=== PATIENT | female | born 1935 | race Caucasian/White ===

== ENCOUNTER 2016-06-27 13:37 | Emergency (ER) | payer OTHER ==
[~2016-06-27] VITALS: Ht 170.2 cm; Wt 61.7 kg
[~2016-06-27 13:37] MED LIST: ATIVAN1 M1 PO; ATIVAN1 MG PO; BLEPHAMIDE OP; DELTASONE10 MG PO; LOPRESSOR25 MG PO; MECLIZINE25 M2 PO; NAPROXEN500 M1 PO; PROVENTIL2.5 MG/3 M INH; SINGULAIR10 MG PO; THEOPHYLLINE300 MG PO; VENTOLIN H0.09 MG/Ac IH; VERAPAMIL HCL80 MG PO; VESICARE5 MG PO; XOPENEX0.63 MG/3 INH
[2016-06-27 13:50] VITALS: BP 164/97
--- NOTE | 2016-06-27 14:07 | NUR ---
APATIENT PRESENTS TO ED DUE TO SOB, WHEEZING AND COUGHING . PT STATES IM TAKING LEVAQUIN AND PREDNISONE AND ALBUTEROL,WITH DIARRHEA; SKIN IS PINK/WARM/DRY; AAOX4 WITH EVEN AND STEADY GAIT; HR EVEN AND REGULAR, PATIENT STATES PAIN OF 05/10 SORETHROAT,AT THIS TIME; PATIENT POSITIONED FOR COMFORT; HOB ELEVATED; BEDRAILS UP X2; BED DOWN. PT WAS IN THE CLINIC TODAY AND WAS ADVISE TO COME TO ER.
--- NOTE | 2016-06-27 14:25 | NUR ---
RELAYED TO DR. MARINA RESULT OF URINE DIPSTICK
--- NOTE | 2016-06-27 14:27 | NUR ---
DR. MARINA AT BEDSIDE,PT AAO, SON IN LAW AT BEDSIDE
[2016-06-27] MEDS ORDERED: methylPREDNISolone SS 125 MG in WATER STERILE 2 ML IV ONE (14:35)
[2016-06-27] MEDS ORDERED: ALBUTEROL SULFATE/IPRATROPIU 3 ML SOL IH ONE (14:35)
--- NOTE | 2016-06-27 15:14 | NUR ---
PT AAO.NO ACUTE DISTRESS NOTED.PT WENT TO XRAY ACCOMPANIED BY [employer].
--- NOTE | 2016-06-27 15:21 | NUR ---
BREATHING TX ON GOING.
--- NOTE | 2016-06-27 16:15 | NUR ---
PT AAO.NO ACUTE DISTRESS NOTED. AMBULATED TO RESTROOM.
--- NOTE | 2016-06-27 16:23 | NUR ---
DAUGHTER AT BEDSIDE.
--- NOTE | 2016-06-27 16:31 | NUR ---
DR. MARINA AT BEDSIDE
--- NOTE | 2016-06-27 16:40 | NUR ---
Patient discharged with v/s stable. Written and verbal after care instructions given and explained. Patient alert, oriented and verbalized understanding of instructions. Ambulatory with steady gait. All questions addressed prior to discharge. ID band removed. Patient advised to follow up with PMD. Rx of AZITHROMYCIN AND PREDNISONE given. Patient educated on indication of medication including possible reaction and side effects. Opportunity to ask questions provided and answered.
[2016-06-27 16:43] VITALS: BP 146/79
== END 2016-06-27 16:18 | disposition home or self-care (01) ==
LOC: MED 13:42
DX: J45.901 Unspecified asthma with (acute) exacerbation (principal); J44.9 Chronic obstructive pulmonary disease, unspecified
CPT/HCPCS: 36415; 71020; 80048; 85025; 93005; 94640; 96374; 99285; J2930; J7620

== ENCOUNTER 2016-07-31 18:19 | Emergency (ER) | payer OTHER ==
[~2016-07-31] VITALS: Ht 170.2 cm; Wt 59.0 kg
[2016-07-31 18:40] VITALS: BP 157/88
[2016-07-31 20:30] VITALS: BP 152/83
--- NOTE | 2016-07-31 21:14 | NUR ---
BIB WHEELCHAIR TO ER BED 2
--- NOTE | 2016-07-31 21:20 | NUR ---
80Y/F PATIENT PRESENTS TO ED WITH C/O SOB . PT STATES HX.COPD, TODAY HAVIG EPISODE OF SOB . DENIES N/V/D; SKIN IS PINK/WARM/DRY; AAOX4 WITH EVEN AND STEADY GAIT; LUNGS CLEAR BL; HR EVEN AND REGULAR; PT DENIES ANY FEVER COUGH AT THIS TIME; PATIENT STATES PAIN OF 5/10 AT THIS TIME; VSS; PATIENT POSITIONED FOR COMFORT; HOB ELEVATED; BEDRAILS UP X2; BED DOWN. ER MD MADE AWARE OF PT STATUS.
--- NOTE | 2016-07-31 21:25 | NUR ---
Patient being evaluated by DR. PATEL at bedside.
[2016-07-31] MEDS ORDERED: KETOROLAC 60 MG/2 ML VIAL IM ONE (21:55)
[2016-07-31] MEDS ORDERED: ALBUTEROL SULFATE/IPRATROPIU 3 ML SOL IH ONE (21:55)
--- NOTE | 2016-07-31 22:35 | NUR ---
Patient discharged with v/s stable. Written and verbal after care instructions given and explained. Patient alert, oriented and verbalized understanding of instructions. Ambulatory with steady gait. All questions addressed prior to discharge. ID band removed. Patient advised to follow up with PMD. Rx of ATROVENT 0.02% SOLUTION given. Patient educated on indication of medication including possible reaction and side effects. Opportunity to ask questions provided and answered.
== END 2016-07-31 22:35 | disposition home or self-care (01) ==
LOC: MED 18:19
DX: J44.1 Chronic obstructive pulmonary disease with (acute) exacerbation (principal); J45.998 Other asthma
CPT/HCPCS: 36415; 71010; 80053; 81001; 82550; 82553; 83605; 83874; 83880; 84484; 85025; 85610; 85730; 87040; 87086; 93005; 94640; 96372; 99285; J1885; J7620

== ENCOUNTER 2016-09-21 12:35 | Emergency (ER) | payer OTHER ==
[~2016-09-21] VITALS: Ht 154.9 cm; Wt 60.3 kg
[2016-09-21 12:49] VITALS: BP 133/63
--- NOTE | 2016-09-21 14:36 | NUR ---
Patient ambulated to bed 6. RN evaluating patient at bedside.
--- NOTE | 2016-09-21 14:38 | NUR ---
PT CAME TO ER W/ C/O LEFT EAR RINGING 3YRS BUT RINGING WORSE AND NOW WITH AIR SOUND 1 WK ADDS NECK / HEADACHE/ THROAT PAIN;PAIN SCALE OF 6/10;DENIES CP/SOB/COUGH/N/V AT THIS TIME;HX ---COPD, ;RX----ANACIN, ALBUTEROL, SYMBICORT, MECLIZINE, IBUPROFEN;NEEDS ATTENDED;SAFETY MEASURES DONE;NEEDS ATTENDED;POSITIONED FOR COMFORT.
--- NOTE | 2016-09-21 14:46 | NUR ---
Dr. Prince evaluating patient at bedside.
[2016-09-21] MEDS ORDERED: DEXAMETHASONE 4 MG/ML VIAL PO ONE (14:50)
[2016-09-21] MEDS ORDERED: METOCLOPRAMIDE 10 MG TAB PO ONE (14:50)
--- NOTE | 2016-09-21 15:45 | NUR ---
PT RESTING ON BED;NO ACUTE DISTRESS NOTED;WILL CONTINUE TO MONITOR PT.
--- NOTE | 2016-09-21 16:33 | NUR ---
PT ASKED FOR A BEDPAN;WANTS TO URINATE;
--- NOTE | 2016-09-21 17:13 | NUR ---
DR HAYWOOD AT BEDSIDE.
[2016-09-21 17:34] VITALS: BP 118/77
== END 2016-09-21 17:32 | disposition home or self-care (01) ==
LOC: MED 12:35
DX: J02.9 Acute pharyngitis, unspecified (principal); H93.12 Tinnitus, left ear; J44.9 Chronic obstructive pulmonary disease, unspecified; Z79.899 Other long term (current) drug therapy
CPT/HCPCS: 36415; 70450; 80053; 81001; 85025; 85610; 85730; 87081; 93005; 99285; J1100; J8597; Q0163

== ENCOUNTER 2017-04-08 16:46 | Inpatient (IN) | payer OTHER ==
[~2017-04-08] VITALS: Ht 160 cm; Wt 59.9 kg
[~2017-04-08 16:46] MED LIST changes: +ALBU0.0912 IH; -ATIVAN1 M1 PO; -ATIVAN1 MG PO; +BLEOS OP; -BLEPHAMIDE OP; -DELTASONE10 MG PO; -LOPRESSOR25 MG PO; +LORA-476 PO; +MECL-272 PO; -MECLIZINE25 M2 PO; -NAPROXEN500 M1 PO; +PRON INH; -PROVENTIL2.5 MG/3 M INH; -SINGULAIR10 MG PO; +SOLI5TAB PO; -THEOPHYLLINE300 MG PO; -VENTOLIN H0.09 MG/Ac IH; -VERAPAMIL HCL80 MG PO; -VESICARE5 MG PO; -XOPENEX0.63 MG/3 INH
[2017-04-08 17:19] VITALS: BP 132/77
--- NOTE | 2017-04-08 17:29 | NUR ---
PT PRESENTS TO ER W/C/O DIZZINESS X2 DAYS. HX RECENT LEFT EAR INFECTION, COPD,EMPHYSEMA, DEPRESSION, ANXIETY. DENIES N/V/D; SKIN IS PINK/WARM/DRY; AAOX4 WITH EVEN AND STEADY GAIT; LUNGS CLEAR BL; HR EVEN AND REGULAR; PT DENIES ANY FEVER, CP, SOB, OR COUGH AT THIS TIME; PATIENT STATES PAIN OF 0/10 AT THIS TIME; VSS; PATIENT POSITIONED FOR COMFORT; HOB ELEVATED; BEDRAILS UP X2; BED DOWN. ER MD MADE AWARE OF PT STATUS.
--- NOTE | 2017-04-08 17:32 | NUR ---
DR ROLAND EVALUATING AAO PT AT BEDSIDE
[2017-04-08] MEDS ORDERED: MECLIZINE 25 MG TAB PO ONE (17:40)
[2017-04-08] MEDS ORDERED: ALBUTEROL SULFATE/IPRATROPIU 3 ML SOL IH ONE (17:40)
[2017-04-08] MEDS ORDERED: ONDANSETRON 4 MG/2 ML VIAL IVP ONE (17:40)
[2017-04-08] MEDS ORDERED: LORazepam 2 MG/ML VIAL IVP ONE (17:40)
[2017-04-08] MEDS ORDERED: NACL 0.9% 1,000 ML IV ONE (17:40)
[2017-04-08 17:50] LABS: BASOPHILS # (AUTO) 0.1 K/uL (0.00-0.22); BASOPHILS % (AUTO) 1.3 % (0.0-2.0); EOSINOPHILS % (AUTO) 0.1 % (0.0-4.0); HEMATOCRIT 39.9 % (36-48); HEMOGLOBIN 13.4 g/dL (12.0-16.0); LYMPHOCYTES # (AUTO) 0.6 K/uL (2.5-16.5); LYMPHOCYTES % (AUTO) 5.2 % (20.5-51.1); MEAN CORPUSCULAR HEMOGLOBIN 31 pg (27-31); MEAN CORPUSCULAR HGB CONC 34 g/dL (33-37); MEAN CORPUSCULAR VOLUME 93 fL (80-94); MONOCYTES # (AUTO) 0.1 K/uL (0.8-1.0); MONOCYTES % (AUTO) 0.8 % (1.7-9.3); NEUTROPHILS # (AUTO) 10.1 K/uL (1.8-7.7); NEUTROPHILS % (AUTO) 92.6 % (42.2-75.2); PLATELET COUNT (AUTO) 180 K/uL (140-450); RED CELL DISTRIBUTION WIDTH 14.1 % (11.6-13.7); WHITE BLOOD COUNT (AUTO) 10.9 K/uL (4.8-10.8)
--- NOTE | 2017-04-08 18:00 | NUR ---
Respiratory Therapist at bedside for respiratory intervention.
[2017-04-08 18:11] LABS: ALBUMIN 3.8 g/dL (3.4-5.0); ANION GAP 13.6 (8-16); ASPARTATE AMINOTRANSFERASE 18 U/L (15-37); CARBON DIOXIDE 26.5 mmol/L (21-32); CHLORIDE 105 mmol/L (98-107); CREATININE 1.1 mg/dL (0.6-1.3); GLUCOSE 122 mg/dL (74-106); POTASSIUM 4.1 mmol/L (3.5-5.1); SODIUM SERUM 141 mmol/L (136-145); TOTAL BILIRUBIN 0.4 mg/dL (0.0-1.0); UREA NITROGEN, BLOOD 22 mg/dL (7-18)
[2017-04-08 18:49] LABS: APPEARANCE,URINE CLEAR (CLEAR); BILIRUBIN,URINE NEGATIVE (NEGATIVE); BLOOD, URINE TRACE-I (NEGATIVE); LEUKOCYTE ESTERASE ,URINE NEGATIVE (NEGATIVE); NITRITE, URINE NEGATIVE (NEGATIVE); UGLUCOSE NEGATIVE (NEGATIVE)
[2017-04-08 18:51] LABS: COLOR,URINE STRAW (YELLOW)
[2017-04-08] MEDS ORDERED: MONT10TA35 PO (18:53)
[2017-04-08] MEDS ORDERED: ACET-7568 PO (18:53)
[2017-04-08] MEDS ORDERED: SERT50TA PO (18:53)
[2017-04-08] MEDS ORDERED: PRED10TA5 PO (18:53)
[2017-04-08 18:55] LABS: RBC,URINE 0-5 (RARE) /HPF (0-5); WBC,URINE 0-5 (RARE) /HPF (0-5)
[2017-04-08] MEDS ORDERED: ACETAMINOPHEN EXTRA STRENGTH 500 MG TAB PO ONE (18:55)
[2017-04-08] MEDS ORDERED: HYDROcodone/APAP 7.5/325 MG 1 TAB PO PRN (18:55)
[2017-04-08] MEDS ORDERED: ACETAMINOPHEN 325 MG TAB PO PRN (18:55)
[2017-04-08] MEDS ORDERED: ONDANSETRON 4 MG/2 ML VIAL IVP PRN (18:55)
[2017-04-08] MEDS ORDERED: MECLIZINE 25 MG TAB PO PRN ×2 (19:15→19:25)
--- NOTE | 2017-04-08 19:16 | NUR ---
REPORT GIVEN TO TIM MICHEL
--- NOTE | 2017-04-08 19:17 | NUR ---
Pt found resting comfortably in bed. VSS. No distress noted.
--- NOTE | 2017-04-08 19:18 | NUR ---
Pt taken to CT via rshabbir.
[2017-04-08 19:20] LABS: PROTHROMBIN TIME 10.3 secs (10.8-13.4)
[2017-04-08 19:29] LABS: CHOL/HDL RATIO 2.8 (1-4.5); FREE T4 (FREE THYROXINE) 0.78 ng/dL (0.76-1.46); PHOSPHORUS 2.8 mg/dL (2.5-4.9); THYROID STIMULATING HORMONE 0.61 uIU/mL (0.34-3.74)
--- NOTE | 2017-04-08 19:44 | NUR ---
Pt placed in position of comfort, warm blanket provided. Belongings placed in a patient belongings bag and labeled with pt sticker. Lights dimmed in room. VSS. All needs addressed.
--- NOTE | 2017-04-08 19:55 | NUR ---
Dr. Almodovar evaluating patient at bedside.
--- NOTE | 2017-04-08 19:59 | NUR ---
Waiting for on-call nurse to arrive for report to be given. Will continue to monitor patient.
[2017-04-08] MEDS ORDERED: ALBUTEROL SULFATE/IPRATROPIU 3 ML SOL IH PRN (20:30)
--- NOTE | 2017-04-08 20:49 | NUR ---
call manager nurse has not arrived. Unable to give report. Pt stable. Daughter at bedside.
--- NOTE | 2017-04-08 21:17 | NUR ---
Patient will be admitted to care of Dr. Monzon. Admited to Tele. Will go to [id number]. Belongings list completed. Report to Diana DUMONT.
[2017-04-08] MEDS: NACL 0.9% 1,000 ML IV SCH (21:35)
--- NOTE | 2017-04-08 21:35 | NUR ---
ADMITTED PATIENT TO THE TELE UNIT, PATIENT AWAKE ALERT ORIENTED X4, NO S/S OF DISTRESS NOTED, RESPIRATION EVEN AND UNLABORED, DENIES PAIN AT THIS TIME. IV PATENT AND INTACT. TELE MONITOR IS PLACED ON PATIENT. ORIENTED PATIENT TO THE ROOM, DISCUSSED PLAN OF CARE, PATIENT VERBALIZED UNDERSTANDING. CALL LIGHT WITHIN REACH, SAFETY MEASURE ENSURED, WILL CONTINUE TO MONITOR.
[2017-04-08] MEDS: SERTRALINE 50 MG TAB PO SCH (21:42)
[2017-04-08] MEDS: LORazepam 1 MG TAB PO SCH (21:42)
[2017-04-08] MEDS: DOCUSATE SODIUM 100 MG GELCAP PO SCH (21:42)
[2017-04-08 21:50] VITALS: BP 126/82
--- NOTE | 2017-04-08 23:46 | NUR ---
PATIENT WAS SLEEPING, BUT EASY TO AROUSE, RESPIRATION EVEN AND UNLABORED, S/S OF DISTRESS NOTED. CALL LIGHT WITHIN REACH, SAFETY MEASURE ENSURED, WILL CONTINUE TO MONITOR.
[2017-04-09] VITALS (8 sets, daily range): BP systolic 125–138; BP diastolic 65–79
--- NOTE | 2017-04-09 02:03 | NUR ---
NO CHANGE IN CONDITION, PATIENT IS SLEEPING, NO S/S OF DISTRESS NOTED, RESPIRATION EVEN AND UNLABORED, CALL LIGHT WITHIN REACH, SAFETY MEASURE ENSURED, WILL CONTINUE TO MONITOR.
--- NOTE | 2017-04-09 04:04 | NUR ---
PATIENT WAS SLEEPING, BUT EASY TO AROUSE, NO S/S OF DISTRESS NOTED, RESPIRATION EVEN AND UNLABORED, CALL LIGHT WITHIN REACH, SAFETY MEASURE ENSURED, WILL CONTINUE TO MONITOR.
--- NOTE | 2017-04-09 06:29 | NUR ---
PATIENT WAS SLEEPING, BUT EASY TO AROUSE. NO S/S OF DISTRESS NOTED, RESPIRATION EVEN AND UNLABORED, CALL LIGHT WITHIN REACH, SAFETY MEASURE ENSURED, WILL CONTINUE TO MONITOR.
[2017-04-09 06:51] LABS: BASOPHILS # (AUTO) 0.1 K/uL (0.00-0.22); BASOPHILS % (AUTO) 1.4 % (0.0-2.0); EOSINOPHILS % (AUTO) 0.5 % (0.0-4.0); HEMATOCRIT 35.3 % (36-48); LYMPHOCYTES # (AUTO) 1.4 K/uL (2.5-16.5); LYMPHOCYTES % (AUTO) 16.9 % (20.5-51.1); MEAN CORPUSCULAR HEMOGLOBIN 32 pg (27-31); MEAN CORPUSCULAR HGB CONC 34 g/dL (33-37); MEAN CORPUSCULAR VOLUME 93 fL (80-94); MONOCYTES # (AUTO) 0.6 K/uL (0.8-1.0); MONOCYTES % (AUTO) 6.5 % (1.7-9.3); NEUTROPHILS # (AUTO) 6.5 K/uL (1.8-7.7); NEUTROPHILS % (AUTO) 74.7 % (42.2-75.2); PLATELET COUNT (AUTO) 147 K/uL (140-450); RED BLOOD CELL COUNT(AUTO) 3.81 MIL/uL (4.20-5.40); RED CELL DISTRIBUTION WIDTH 14.2 % (11.6-13.7); WHITE BLOOD COUNT (AUTO) 8.6 K/uL (4.8-10.8)
[2017-04-09] MEDS: ALBUTEROL SULFATE/IPRATROPIU 3 ML SOL IH SCH ×3 (06:51→19:00)
[2017-04-09 06:56] LABS: ANION GAP 11.2 (8-16); CARBON DIOXIDE 26.7 mmol/L (21-32); CHLORIDE 111 mmol/L (98-107); CREATININE 0.9 mg/dL (0.6-1.3); GLUCOSE 92 mg/dL (74-106); POTASSIUM 3.9 mmol/L (3.5-5.1); SODIUM SERUM 145 mmol/L (136-145); UREA NITROGEN, BLOOD 17 mg/dL (7-18)
[2017-04-09 07:06] LABS: PHOSPHORUS 3.3 mg/dL (2.5-4.9)
--- NOTE | 2017-04-09 07:10 | NUR ---
ENDORSED PLAN OF CARE TO DAY RN. PATIENT IS IN STABLE CONDITION, NO S/S OF DISTRESS NOTED.
--- NOTE | 2017-04-09 07:22 | NUR ---
RECEIVED PT IN BED. AWAKE. ALERT ORIENTEDX4. NO SOB NOTED. DENIES ANY PAIN OR DISCOMFORT AT THIS TIME. PT AMBULATORY WITH STANDBY ASSIST. SAFETY PRECAUTION IN PLACE. CALL LIGHT WITHIN REACH.
--- NOTE | 2017-04-09 08:42 | NUR ---
PATIENT HAS BEEN SCREENED AND CATEGORIZED LOW NUTRITION RISK. PATIENT WILL BE SEEN WITHIN 7 DAYS OF ADMISSION. 04/15/[address] Addendum: 04/09/17 at [address] PLEASE DISREGARD PREVIOUS NOTE IT WAS ENTERED IN ERROR. PATIENT HAS BEEN SCREENED AND CATEGORIZED MODERATE NUTRITION RISK. PATIENT WILL BE SEEN WITHIN 3-5 DAYS OF ADMISSION. 04/11/17-04/13/[address]
[2017-04-09] MEDS ORDERED: PREDNISOL/SULFACE 0.23%-10% OP SOL. 5 ML BTL OP SCH (09:00)
[2017-04-09] MEDS: ASPIRIN 81 MG TAB.CHEW PO SCH (09:09)
[2017-04-09] MEDS: DOCUSATE SODIUM 100 MG GELCAP PO SCH ×2 (09:09→20:36)
[2017-04-09] MEDS: ATORVASTATIN 20 MG TAB PO SCH (09:10)
[2017-04-09] MEDS: predniSONE 10 MG TAB PO SCH (09:10)
[2017-04-09] MEDS: MONTELUKAST SODIUM 10 MG TAB PO SCH (09:10)
[2017-04-09] MEDS: FLUTICASONE NASAL 50 MCG/ACTUATION 16 GM BTL NS SCH ×2 (12:00→20:35)
--- NOTE | 2017-04-09 12:03 | NUR ---
OVERNIGHT STOCKER CAME TO SUBSTATION WIREMAN PT. PT ON STABLE CONDITION.
--- NOTE | 2017-04-09 13:33 | NUR ---
Clinical review faxed to Brennen VEGA AT [phone]
--- NOTE | 2017-04-09 15:01 | NUR ---
EXPLAINED TO PT THAT MD IS REQUESTING HEALTH RECORDS FROM [facility]. PT VERBALIZED UNDERSTANDING. CALLED [facility] AT [phone]. CONFIRMED THAT THEY HAVE PT'S RECORD. PT SIGNED CONSENT FOR DISCLOSURE OF HEALTH RECORDS FORM FROM [facility] TO [facility] PER MD REQUEST. FAXED REQUEST TO [phone]. AWAITING CONFIRMATION.
--- NOTE | 2017-04-09 16:05 | NUR ---
RECEIVED FAX CONFIRMATION FROM [facility] THAT THEY RECEIVED REQUEST. AWAITING FOR INFORMATION PAPERS.
--- NOTE | 2017-04-09 17:19 | NUR ---
PHYSICAL THERAPY CAME TO SEE PT. PT WAS ABLE TO WALK WITH STANDBY ASSIST ALONG THE HALLWAY. NON SOB NOTED. DENIES ANY PAIN OR DISCOMFORT AT THIS TIME.
[2017-04-09] MEDS: NACL 0.9% 1,000 ML IV SCH (18:11)
--- NOTE | 2017-04-09 18:36 | NUR ---
PT KEPT CLEAN, DRY AND COMFORTABLE, NEEDS ATTENDED. NO SOB NOTED. DENIES ANY PAIN OR DISCOMFORT AT THIS TIME. WILL ENDORSE TO NEXT SHIFT. PT ON STABLE CONDITION, FOR CONTINUITY OF CARE.
--- NOTE | 2017-04-09 19:10 | NUR ---
RECEIVED PT FROM YASIR RN PT OCCITAN SPEAKER AAOX4 AMBULATORY ON BREATHING TX AT THIS TIME DENIES ANY PAIN OR DISCOMFORT iv on left arm infusing well initial assessment done
[2017-04-09] MEDS: LORazepam 1 MG TAB PO SCH (20:36)
[2017-04-09] MEDS: SERTRALINE 50 MG TAB PO SCH (20:37)
--- NOTE | 2017-04-09 21:00 | NUR ---
pt is assisted to the restroom voiding well not distress noted
--- NOTE | 2017-04-09 21:30 | NUR ---
PT REMAIN STABLE DENIES ANY DIZZINESS AT THIS TIME
[2017-04-10] VITALS: BP 112/73
--- NOTE | 2017-04-10 | NUR ---
PT IS ASSISTED TO AMBULATES TO THE RESTROOM NOT DIZZINESS , NOT PAIN REMAIN STABLE AT THIS TIME
[2017-04-10 04:00] VITALS: BP 125/77
--- NOTE | 2017-04-10 04:00 | NUR ---
SPONGE BATH GIVEN LINEN CHANGED REMAIN STABLE SLEEPING WELLL NOT DISTRESS NOTED
--- NOTE | 2017-04-10 06:33 | NUR ---
PT IS ASSISTED TO THE RESTROOM NOT DISTRESS NOTED
[2017-04-10 06:38] LABS: BASOPHILS # (AUTO) 0.3 K/uL (0.00-0.22); BASOPHILS % (AUTO) 3.4 % (0.0-2.0); EOSINOPHILS # (AUTO) 0.1 K/uL (0-0.4); EOSINOPHILS % (AUTO) 1.1 % (0.0-4.0); HEMATOCRIT 35.1 % (36-48); HEMOGLOBIN 11.6 g/dL (12.0-16.0); LYMPHOCYTES # (AUTO) 1.5 K/uL (2.5-16.5); LYMPHOCYTES % (AUTO) 18.3 % (20.5-51.1); MEAN CORPUSCULAR HEMOGLOBIN 30 pg (27-31); MEAN CORPUSCULAR HGB CONC 33 g/dL (33-37); MEAN CORPUSCULAR VOLUME 92 fL (80-94); MONOCYTES # (AUTO) 0.7 K/uL (0.8-1.0); MONOCYTES % (AUTO) 8.1 % (1.7-9.3); NEUTROPHILS # (AUTO) 5.5 K/uL (1.8-7.7); NEUTROPHILS % (AUTO) 69.1 % (42.2-75.2); PLATELET COUNT (AUTO) 140 K/uL (140-450); RED BLOOD CELL COUNT(AUTO) 3.81 MIL/uL (4.20-5.40); RED CELL DISTRIBUTION WIDTH 14.2 % (11.6-13.7); WHITE BLOOD COUNT (AUTO) 8.1 K/uL (4.8-10.8)
[2017-04-10] MEDS: ALBUTEROL SULFATE/IPRATROPIU 3 ML SOL IH SCH (06:44)
[2017-04-10 07:04] LABS: ANION GAP 9.2 (8-16); CARBON DIOXIDE 29.6 mmol/L (21-32); CHLORIDE 109 mmol/L (98-107); GLUCOSE 84 mg/dL (74-106); POTASSIUM 3.8 mmol/L (3.5-5.1); SODIUM SERUM 144 mmol/L (136-145); UREA NITROGEN, BLOOD 19 mg/dL (7-18)
[2017-04-10 07:08] LABS: MAGNESIUM 1.9 mg/dL (1.8-2.4); PHOSPHORUS 3.6 mg/dL (2.5-4.9)
--- NOTE | 2017-04-10 07:25 | NUR ---
RECEIVED REPORT FROM NIGHT RN, PT IN STABLE CONDITION, PT LYING SUPINE IN BED ON RA, A/O X4, PT DENIES ANY PAIN, NO S/S OF ACUTE DISTRESS, IV PATENT AND INTACT, PLAN OF CARE DISCUSSED WITH PT, PT VERBALIZED UNDERSTANDING OF CARE, SAFETY PRECAUTIONS TAKEN, CALL LIGHT WITHIN REACH, WILL CONT TO MONITOR.
[2017-04-10 08:00] VITALS: BP 134/75
[2017-04-10] MEDS ORDERED: ATOR20TA40 PO (08:27)
[2017-04-10] MEDS ORDERED: METH4TAB1 PO (08:27)
[2017-04-10] MEDS ORDERED: FLONAS NS (08:27)
[2017-04-10] MEDS: MONTELUKAST SODIUM 10 MG TAB PO SCH (08:54)
[2017-04-10] MEDS: ASPIRIN 81 MG TAB.CHEW PO SCH (08:54)
[2017-04-10] MEDS: DOCUSATE SODIUM 100 MG GELCAP PO SCH (08:54)
[2017-04-10] MEDS: predniSONE 10 MG TAB PO SCH (08:54)
[2017-04-10] MEDS: ATORVASTATIN 20 MG TAB PO SCH (08:54)
[2017-04-10] MEDS: FLUTICASONE NASAL 50 MCG/ACTUATION 16 GM BTL NS SCH (08:55)
[2017-04-10] MEDS ORDERED: PREDNISOL/SULFACE 0.23%-10% OP SOL. 5 ML BTL BOTH EYES SCH (09:00)
[2017-04-10] MEDS ORDERED: PREDNISOL/SULFACE 0.23%-10% OP SOL. 5 ML BTL OP SCH (09:00)
--- NOTE | 2017-04-10 09:02 | NUR ---
DUE MEDICATIONS GIVEN WITH EDUCATION, PT VERBALIZED UNDERSTANDING, TOLERATED WELL, PT CALL LIGHT WITHIN REACH, WILL CONT TO MONITOR.
--- NOTE | 2017-04-10 11:18 | NUR ---
Clinical review faxed to at [phone]
--- NOTE | 2017-04-10 11:30 | NUR ---
DISCHARGE INSTRUCTIONS GIVEN, ANSWERED ALL QUESTIONS, PT VERBALIZED UNDERSTANDING, REMOVED TELE MONITOR, ID BANDS, IV CANULA INTACT, NO BLEEDING NOTED, PT WILL GET DRESSED, WAITING FOR DAUGHTER, WILL LET US KNOW WHEN DAUGHTER ARRIVES, WHEELCHAIR WILL BE READY FOR DISCHARGE.
--- NOTE | 2017-04-10 12:15 | NUR ---
PT WHEELED OUT BY RURAL SERVICE ENGINEER ACCOMPANIED BY DAUGHTER, ALL PERSONAL BELONGINGS IN HAND, PT STABLE.
== END 2017-04-10 12:15 | disposition home or self-care (01) | DRG 149 ==
LOC: MED 16:46 → MTU 18:59
PROVIDERS: ADMIT Family Medicine; ATTEND Family Medicine
DX: H81.10 Benign paroxysmal vertigo, unspecified ear (principal); N17.9 Acute kidney failure, unspecified; E87.8 Other disorders of electrolyte and fluid balance, not elsewhere classified; D68.59 Other primary thrombophilia; I07.1 Rheumatic tricuspid insufficiency; I27.20 Pulmonary hypertension, unspecified; H81.09 Meniere's disease, unspecified ear; J44.9 Chronic obstructive pulmonary disease, unspecified; F41.9 Anxiety disorder, unspecified; I34.0 Nonrheumatic mitral (valve) insufficiency; I35.0 Nonrheumatic aortic (valve) stenosis; E11.9 Type 2 diabetes mellitus without complications; G31.9 Degenerative disease of nervous system, unspecified; M26.69 Other specified disorders of temporomandibular joint; M17.0 Bilateral primary osteoarthritis of knee; R26.9 Unspecified abnormalities of gait and mobility; M99.09 Segmental and somatic dysfunction of abdomen and other regions; E78.2 Mixed hyperlipidemia; D72.829 Elevated white blood cell count, unspecified; T38.0X5A Adverse effect of glucocorticoids and synthetic analogues, initial encounter; Y92.89 Other specified places as the place of occurrence of the external cause; Z90.49 Acquired absence of other specified parts of digestive tract; Z98.49 Cataract extraction status, unspecified eye; Z98.891 History of uterine scar from previous surgery; Z79.899 Other long term (current) drug therapy
CPT/HCPCS: 36415; 70450; 70486; 71010; 80048; 80053; 81001; 82150; 82948; 83036; 83690; 83735; 83880; 84100; 84439; 84443; 84484; 85025; 85610; 85730; 87081; 93880; 94640; 96361; 96374; 96375; 99285; J2060; J2405; J7030; J7512; J7620; J8597; Q0092

== ENCOUNTER 2017-04-18 12:42 | Emergency (ER) | payer OTHER ==
[~2017-04-18] VITALS: Ht 160 cm; Wt 59.0 kg
[~2017-04-18 12:42] MED LIST changes: +ACET-7568 PO; +ATOR20TA40 PO; +FLONAS NS; +METH4TAB1 PO; +MONT10TA35 PO; +SERT50TA PO; -SOLI5TAB PO
[2017-04-18 13:15] VITALS: BP 146/76
--- NOTE | 2017-04-18 14:00 | NUR ---
Patient returned from XRAY, transferred to bed 7 via wheelchair. RN evaluating patient at bedside.
--- NOTE | 2017-04-18 14:07 | NUR ---
PATIENT PRESENTS TO ED WITH c/o persistant productive cough, green phlegm, sob, throat pain, general bodyaches x 3 days;seen in our er 04/08/2017 discharged 04/10/2217;hx of copd,hyperlipidemia,anxiety;rx of zoloft, ativan,tylenol,meclizine, prednisone,singular, fluticasone, albuterol .DENIES N/V/D; SKIN IS PINK/WARM/DRY; AAOX4 WITH EVEN AND STEADY GAIT; HR EVEN AND REGULAR; PT DENIES ANY FEVER, CP AT THIS TIME; PATIENT STATES PAIN OF 8/10 AT THIS TIME; PATIENT POSITIONED FOR COMFORT; HOB ELEVATED; BEDRAILS UP X2; BED DOWN. ER MD MADE AWARE OF PT STATUS.
[2017-04-18] MEDS ORDERED: ALBUTEROL SULFATE/IPRATROPIU 3 ML SOL IH ONE (16:05)
--- NOTE | 2017-04-18 16:14 | NUR ---
RT AT BEDSIDE.
[2017-04-18 16:49] VITALS: BP 133/71
--- NOTE | 2017-04-18 16:49 | NUR ---
Patient discharged with v/s stable. Written and verbal after care instructions given and explained. Patient alert, oriented and verbalized understanding of instructions. Ambulatory with steady gait. All questions addressed prior to discharge. ID band removed. Patient advised to follow up with PMD. Rx of AZITHROMYCIN given. Patient educated on indication of medication including possible reaction and side effects. Opportunity to ask questions provided and answered.
== END 2017-04-18 16:49 | disposition home or self-care (01) ==
LOC: MED 12:42
DX: J44.1 Chronic obstructive pulmonary disease with (acute) exacerbation (principal); J40 Bronchitis, not specified as acute or chronic; F41.9 Anxiety disorder, unspecified; E78.5 Hyperlipidemia, unspecified; Z79.899 Other long term (current) drug therapy
CPT/HCPCS: 71010; 94640; 99283; J7620

== ENCOUNTER 2017-11-07 11:15 | Emergency (ER) | payer OTHER ==
[~2017-11-07] VITALS: Ht 157.5 cm; Wt 61.7 kg
[2017-11-07 11:20] VITALS: BP 145/79
--- NOTE | 2017-11-07 11:27 | NUR ---
PT AMBULATED TO ER BED 10
--- NOTE | 2017-11-07 11:28 | NUR ---
ua collected. Pt ambulated to bed 10.
--- NOTE | 2017-11-07 11:38 | NUR ---
82 YO M BIB DTR W/ LUQ ABD PAIN X4 DAYS INTERMITTENTLY ACCOMPANIED BY NAUSEA AND DIARRHEA, DENIES VOMITING; ALSO C/O VERTIGO X2 MONTHS WITH DIZZINESS. PT REPORTS TINNITUS. HAS PRESCRIPTION FOR MECLIZINE BUT REPORTS THAT IT HAS NOT HELPED HER. PT DENIES PAIN AT THIS TIME BUT REPORTS THAT WHEN SHE DOES HAVE THE PAIN IT IS SHARP, AND SHE GETS A BAD/SOUR TASTE IN HER MOUTH. PT HAS BEEN ABLE TO DRINK WATER, BUT HAS ONLY EATEN APPLESAUCE TODAY. AAOX4. GCS 15. CMS INTACT. RR EVEN AND UNLABORED. LUNGS BILATERALLY CLEAR. ABD SOFT, NON-TENDER. ER MD SHAW NOTIFIED. PT NEEDS MET. SAFET YPRECAUTIONS IN PLACE. WILL CONTINUE TO MONITOR.
[2017-11-07] MEDS ORDERED: NACL 0.9% 1,000 ML IV SCH (12:34)
[2017-11-07] MEDS ORDERED: PROMETHAZINE 25 MG/ML VIAL IM ONE (12:35)
[2017-11-07] MEDS ORDERED: GLYCOPYRROLATE 0.2 MG/ML VIAL IV ONE (12:35)
[2017-11-07] MEDS ORDERED: FAMOTIDINE 20 MG/2 ML VIAL IVP ONE (12:35)
[2017-11-07] MEDS ORDERED: ONDANSETRON 4 MG/2 ML VIAL IVP ONE (12:35)
[2017-11-07] MEDS ORDERED: METOCLOPRAMIDE 10 MG/2 ML INJ VIAL IVP ONE (12:35)
--- NOTE | 2017-11-07 12:50 | NUR ---
PT RESTING COMFORTABLY IN [facility] AT THIS TIME. VSS. WILL CONTINUE TO MONITOR.
[2017-11-07 13:17] LABS: BASOPHILS % (AUTO) 0.9 % (0.0-2.0); EOSINOPHILS # (AUTO) 0.3 K/uL (0-0.4); EOSINOPHILS % (AUTO) 4.9 % (0.0-4.0); HEMATOCRIT 37.8 % (36-48); HEMOGLOBIN 12.7 g/dL (12.0-16.0); LYMPHOCYTES # (AUTO) 0.9 K/uL (2.5-16.5); LYMPHOCYTES % (AUTO) 15.8 % (20.5-51.1); MEAN CORPUSCULAR HEMOGLOBIN 31 pg (27-31); MEAN CORPUSCULAR HGB CONC 34 g/dL (33-37); MEAN CORPUSCULAR VOLUME 91.5 fL (80-94); MONOCYTES # (AUTO) 0.5 K/uL (0.8-1.0); MONOCYTES % (AUTO) 9.4 % (1.7-9.3); NEUTROPHILS # (AUTO) 3.9 K/uL (1.8-7.7); PLATELET COUNT (AUTO) 133 K/uL (140-450); RED BLOOD CELL COUNT(AUTO) 4.13 MIL/uL (4.20-5.40); RED CELL DISTRIBUTION WIDTH 13.8 % (11.6-13.7); WHITE BLOOD COUNT (AUTO) 5.7 K/uL (4.8-10.8)
[2017-11-07 13:22] LABS: APPEARANCE,URINE CLEAR (CLEAR); BILIRUBIN,URINE NEGATIVE (NEGATIVE); BLOOD, URINE 1+ (NEGATIVE); COLOR,URINE YELLOW (YELLOW); LEUKOCYTE ESTERASE ,URINE TRACE (NEGATIVE); NITRITE, URINE NEGATIVE (NEGATIVE); PH,URINE 6.5 (5.0-9.0); UGLUCOSE NEGATIVE (NEGATIVE)
[2017-11-07 13:46] LABS: PROTHROMBIN TIME 10.7 secs (10.8-13.4)
[2017-11-07 13:48] LABS: ANION GAP 11.3 (8-16); CARBON DIOXIDE 27.9 mmol/L (21-32); CHLORIDE 108 mmol/L (98-107); GLUCOSE 102 mg/dL (74-106); POTASSIUM 4.2 mmol/L (3.5-5.1); SODIUM SERUM 143 mmol/L (136-145); UREA NITROGEN, BLOOD 18 mg/dL (7-18)
[2017-11-07 13:54] LABS: ALBUMIN 3.3 g/dL (3.4-5.0); AMYLASE 67 U/L (25-115); ASPARTATE AMINOTRANSFERASE 17 U/L (15-37); LIPASE 187 U/L (73-393); TOTAL BILIRUBIN 0.5 mg/dL (0.0-1.0)
[2017-11-07 13:59] LABS: RBC,URINE 11-20 (MOD) /HPF (0-5)
[2017-11-07 14:00] LABS: WBC,URINE 6-15 (FEW) /HPF (0-5)
--- NOTE | 2017-11-07 14:00 | NUR ---
PT RESTING AT THIS TIME. VSS. RR EVEN AND UNLABORED. SAFETY PRECAUTIONS IN PLACE.WILL CONTINUE TO MONITOR.
[2017-11-07] MEDS ORDERED: LEVOFLOXACIN 500 MG/D5W PREMIX 100 ML IV ONE (14:30)
[2017-11-07] MEDS ORDERED: cefTRIAXone 1,000 MG VIAL ONE (14:56)
--- NOTE | 2017-11-07 15:20 | NUR ---
pt resting on [facility] at this time. vss. will continue to monitor.
--- NOTE | 2017-11-07 16:30 | NUR ---
Pt asleep on [facility] at this time. VSS. Will continue to monitor.
--- NOTE | 2017-11-07 17:45 | NUR ---
Pt finishing antibiotics at this time. Will be d/c following the completion. VSS. Will continue to monitor. Daughter at bedside at this time.
[2017-11-07 19:06] VITALS: BP 131/61
--- NOTE | 2017-11-07 19:09 | NUR ---
Patient discharged with v/s stable. Written and verbal after care instructions given and explained. Patient alert, oriented and verbalized understanding of instructions. Ambulatory with steady gait with assistance from daughter. All questions addressed prior to discharge. ID band removed. Patient advised to follow up with PMD. Rx of Levaquin, Cyprohepiapine given. Patient educated on indication of medication including possible reaction and side effects. Opportunity to ask questions provided and answered.
--- NOTE | 2017-11-19 12:43 | NUR ---
LATE SUBMISSION LEVOFLOXACIN IV PIGGYBACK START TIME 1640 END TIME 4504
== END 2017-11-07 19:09 | disposition home or self-care (01) ==
LOC: MED 11:15
DX: H83.02 Labyrinthitis, left ear (principal); N39.0 Urinary tract infection, site not specified; R19.7 Diarrhea, unspecified; R10.84 Generalized abdominal pain; J44.9 Chronic obstructive pulmonary disease, unspecified
CPT/HCPCS: 36415; 70450; 71045; 74176; 80053; 81001; 82150; 83690; 84484; 85025; 85610; 85730; 87086; 96361; 96365; 96367; 96372; 96375; 99285; J0696; J1956; J2405; J2550; J2765; J3490; J7030; J7060

== ENCOUNTER 2018-02-16 17:03 | Emergency (ER) | payer OTHER ==
[~2018-02-16] VITALS: Ht 167.6 cm; Wt 59.9 kg
[~2018-02-16 17:03] MED LIST changes: -METH4TAB1 PO
[2018-02-16 17:06] VITALS: BP 174/97
--- NOTE | 2018-02-16 17:06 | NUR ---
PT AMBULATES WITH ASSISTANCE TO BED 10
--- NOTE | 2018-02-16 17:06 | NUR ---
CALLED RT FOR TREATMENT
--- NOTE | 2018-02-16 17:07 | NUR ---
82 YO F BIB SELF W/ C/O ASTHMA EXACERBATION X 1-2 HOURS. PT PRESENTS W/ BL EXPIRATORY WHEEZING. NO S/S OF ACUTE RESPIRATORY DISTRESS, AMBULATORY W/ STEADY GAIT. SPEAKING IN FULL, APPPROPRIATE AND COMPLETE SENTENCES. AAOX4, GCS 15. RR EVEN AND UNLABORED. HX COPD RX INHALERS
[2018-02-16] MEDS ORDERED: IPRATROPIUM 0.02% 0.5 MG/2.5 ML NEBU INH ONE (17:15)
[2018-02-16] MEDS ORDERED: predniSONE 20 MG TAB PO ONE (17:15)
[2018-02-16] MEDS ORDERED: ALBUTEROL 0.083% 2.5 MG/3 ML NEBU INH ONE (17:15)
--- NOTE | 2018-02-16 17:20 | NUR ---
XRAY AT BEDSIDE AT THIS TIME.
--- NOTE | 2018-02-16 17:34 | NUR ---
rt at bedside at this time. pt. receiving treatment. vss. will continue to monitor.
[2018-02-16 18:23] VITALS: BP 129/79
--- NOTE | 2018-02-16 18:25 | NUR ---
Patient discharged with v/s stable. Written and verbal after care instructions given and explained. Patient alert, oriented and verbalized understanding of instructions. Carried with steady gait. All questions addressed prior to discharge. ID band removed. Patient advised to follow up with PMD. Rx of FLONASE given. Patient educated on indication of medication including possible reaction and side effects. Opportunity to ask questions provided and answered.
== END 2018-02-16 18:25 | disposition home or self-care (01) ==
LOC: MED 17:03
DX: J45.901 Unspecified asthma with (acute) exacerbation (principal); Z79.899 Other long term (current) drug therapy
CPT/HCPCS: 71045; 93005; 94640; 94760; 99284; J7512; J7613; J7644; Q0092

== ENCOUNTER 2018-06-22 21:57 | Inpatient (IN) | payer OTHER ==
[~2018-06-22] VITALS: Ht 165.1 cm; Wt 59.0 kg
[2018-06-22 22:00] VITALS: BP 189/93
[2018-06-22] MEDS ORDERED: ALBUTEROL 0.083% 2.5 MG/3 ML NEBU INH ONE (22:15)
--- NOTE | 2018-06-22 22:20 | NUR ---
BIB EMS. PT ARRIVED TO ED WITH SOB AND DYSPNEA. PERSED-LIP BREATHING. EXPIRATORY WHEEZING HEARD THROUGHOUT IN BILAT LUNGS. RR OF 32 AT 92%RA. TACHY HR AT 113. POSITIONED IN BED WITH HOB ELEVATED FOR COMFORT AND EASE OF BREATHING. RESPIRATORY CALLED. ER MD NOTIFED. PLACED ON O2 VIA NC AT 2LPM. CONTINUE TO MONITOR.
[2018-06-22] MEDS ORDERED: methylPREDNISolone SS 125 MG/2 ML VIAL IVP ONE (23:10)
[2018-06-22] MEDS ORDERED: MAG SULF 2000 MG/WATER PREMIX 50 ML IV ONE (23:15)
[2018-06-23] MEDS ORDERED: ALBUTEROL 0.083% 2.5 MG/3 ML NEBU INH ONE ×2
[2018-06-23] MEDS ORDERED: IPRATROPIUM 0.02% 0.5 MG/2.5 ML NEBU INH ONE
--- NOTE | 2018-06-23 | NUR ---
PT IN BED RESTING WITH EYES CLOSED. VSS. HOB ELEVATED. SIDE RAIL UP. CONTINUE TO MONITOR.
--- NOTE | 2018-06-23 00:05 | NUR ---
PT HAVE TX IN ER BY DR WESTON,AT [phone] MULTANI ABOUT HIS ORDER ONE TX AT 00;00, AND TOLD HIM THAT ORDER IS DUPLICATED
[2018-06-23] MEDS ORDERED: MECL-272 PO (00:20)
[2018-06-23 00:29] LABS: BASOPHILS % (AUTO) 0.5 % (0.0-2.0); EOSINOPHILS # (AUTO) 0.1 K/uL (0-0.4); EOSINOPHILS % (AUTO) 1.1 % (0.0-4.0); HEMATOCRIT 36.8 % (36-48); LYMPHOCYTES # (AUTO) 0.6 K/uL (2.5-16.5); MEAN CORPUSCULAR HEMOGLOBIN 30 pg (27-31); MEAN CORPUSCULAR HGB CONC 33 g/dL (33-37); MEAN CORPUSCULAR VOLUME 91.7 fL (80-94); MONOCYTES # (AUTO) 0.2 K/uL (0.8-1.0); MONOCYTES % (AUTO) 2.7 % (1.7-9.3); NEUTROPHILS # (AUTO) 6.6 K/uL (1.8-7.7); NEUTROPHILS % (AUTO) 87.4 % (42.2-75.2); PLATELET COUNT (AUTO) 140 K/uL (140-450); RED BLOOD CELL COUNT(AUTO) 4.02 MIL/uL (4.20-5.40); WHITE BLOOD COUNT (AUTO) 7.5 K/uL (4.8-10.8)
[2018-06-23 00:40] LABS: ANION GAP 11.8 (8-16); CARBON DIOXIDE 26.9 mmol/L (21-32); CHLORIDE 107 mmol/L (98-107); CREATININE 1.1 mg/dL (0.6-1.3); GLUCOSE 131 mg/dL (74-106); POTASSIUM 3.7 mmol/L (3.5-5.1); SODIUM SERUM 142 mmol/L (136-145); UREA NITROGEN, BLOOD 26 mg/dL (7-18)
[2018-06-23 00:45] LABS: LYMPHOCYTES % (AUTO) 8.3 % (20.5-51.1)
[2018-06-23 00:46] LABS: ALBUMIN 3.8 g/dL (3.4-5.0); ASPARTATE AMINOTRANSFERASE 19 U/L (15-37); TOTAL BILIRUBIN 0.3 mg/dL (0.0-1.0)
[2018-06-23 00:59] LABS: APPEARANCE,URINE CLEAR (CLEAR); BILIRUBIN,URINE NEGATIVE (NEGATIVE); BLOOD, URINE TRACE-L (NEGATIVE); COLOR,URINE YELLOW (YELLOW); LEUKOCYTE ESTERASE ,URINE NEGATIVE (NEGATIVE); NITRITE, URINE NEGATIVE (NEGATIVE); UGLUCOSE NEGATIVE (NEGATIVE)
[2018-06-23 01:00] LABS: RBC,URINE 0-5 (RARE) /HPF (0-5); WBC,URINE 0-5 (RARE) /HPF (0-5)
[2018-06-23] MEDS ORDERED: ONDANSETRON 4 MG/2 ML VIAL IM/IVP PRN (01:45)
[2018-06-23] MEDS ORDERED: ACETAMINOPHEN 325 MG TAB PO PRN (01:45)
[2018-06-23] MEDS ORDERED: DOCUSATE SODIUM 100 MG GELCAP PO PRN (01:45)
[2018-06-23] MEDS ORDERED: HYDROcodone/APAP 5/325 MG 1 TAB TAB PO PRN (01:45)
--- NOTE | 2018-06-23 02:00 | NUR ---
Pt refused chest x-ray.
[2018-06-23] MEDS ORDERED: ALBUTEROL SULFATE/IPRATROPIU 3 ML SOL IH PRN (02:10)
[2018-06-23 02:13] VITALS: BP 134/70
--- NOTE | 2018-06-23 02:13 | NUR ---
RECEIVED REPORT FROM DAYSHIFT NURSE AT BEDSIDE FOR CONTINUITY OF CARE. PT AAOX4. PT IV NOTED LAC 20G. NO SOB NO S/S/S OF DISTRESS ON RA. BED LOWERED PT ORIENTED TO ROOM. WILL CONTINUE TO MONITOR.
[2018-06-23 02:14] LABS: PROTHROMBIN TIME 10.1 secs (10.8-13.4)
[2018-06-23 02:15] LABS: MAGNESIUM 2.7 mg/dL (1.8-2.4); PHOSPHORUS 3.4 mg/dL (2.5-4.9); THYROID STIMULATING HORMONE 1.84 uIU/mL (0.34-3.74)
--- NOTE | 2018-06-23 02:21 | NUR ---
REPORT GIVEN AND CARE TRANSFERED TO [facility] DUOM[facility] ROOM 105B. TRANSFERED VIA RNEY WITH VSS.
[2018-06-23] MEDS ORDERED: MECLIZINE 25 MG TAB PO PRN (03:05)
[2018-06-23] MEDS: NACL 0.9% 1,000 ML IV SCH ×2 (03:08→18:22)
[2018-06-23 04:00] VITALS: BP 118/78
--- NOTE | 2018-06-23 07:05 | NUR ---
ENDORSED REPORT TO DAYSHIFT NURSE AT BEDSIDE FOR CONTINUITY OF CARE.
[2018-06-23] MEDS: ALBUTEROL SULFATE/IPRATROPIU 3 ML SOL IH SCH ×3 (07:07→18:47)
--- NOTE | 2018-06-23 07:10 | NUR ---
RECEIVED PT FROM ADMINISTRATIVE COORDINATOR NURSE, PT IS AWAKE AND LYING ON THE BED, SIDE RAILS ARE UP AND CALL LIGHT WITHIN REACH, PT DENIES PAIN AND NO SOB NOTED. PT HAS AN IV LINE ON THE LEFT AC G. 20 WITH NS AT 60ML/HR INFUSING. NO SIGN OF DISTRESS NOTED AND WILL MONITOR PT.
--- NOTE | 2018-06-23 07:46 | NUR ---
DR RAZA AND THE RESIDENTS CAME TO PT'S ROOM AND SPOKE WITH PT AND INFORMED PT OF POC AND PT VERBALIZED UNDERSTANDING. WILL MONITOR PT.
--- NOTE | 2018-06-23 07:53 | NUR ---
PATIENT HAS BEEN SCREENED AND CATEGORIZED MODERATE NUTRITION RISK. PATIENT WILL BE SEEN WITHIN 3-5 DAYS OF ADMISSION. 06/25/[address]
[2018-06-23 08:00] VITALS: BP 127/85
--- NOTE | 2018-06-23 08:00 | NUR ---
PT IS AWAKE AND VITAL SIGNS WAS TAKEN AND IS WITHIN NORMAL LIMIT. WILL MONITOR PT.
[2018-06-23] MEDS ORDERED: methylPREDNISolone SS 125 MG/2 ML VIAL IVP SCH ×2 (09:00→09:21)
[2018-06-23] MEDS: LORATADINE 10 MG TAB PO SCH (10:00)
[2018-06-23] MEDS: FAMOTIDINE 20 MG TAB PO SCH (10:00)
[2018-06-23] MEDS: OXYBUTYNIN 5 MG TAB PO SCH ×2 (10:00→20:42)
[2018-06-23] MEDS: guaiFENesin 600 MG TABER PO SCH ×2 (10:01→20:46)
[2018-06-23 12:00] VITALS: BP 128/75
--- NOTE | 2018-06-23 13:29 | NUR ---
PT REFUSED HHN NO SOB VISITOR PRESENT
[2018-06-23] MEDS: methylPREDNISolone SS 125 MG/2 ML VIAL IVP SCH ×2 (14:35→20:43)
--- NOTE | 2018-06-23 14:35 | NUR ---
PT IS AWAKE WITH DAUGHTER ON THE BEDSIDE, MEDICATION GIVEN VIA IV PUSH AND PT TOLERATED IT. WILL MONITOR PT.
[2018-06-23 16:00] VITALS: BP 147/83
--- NOTE | 2018-06-23 19:30 | NUR ---
RECEIVED REPORT FROM DAYSHIFT NURSE AT BEDSIDE FOR CONTINUITY OF CARE. PT AAOX4. PT IV NOTED L WRIST 22G TKO. NO SOB NO S/S OF DISTRESS ON RA. BED LOWERED BED ALARM PLACED. CALL LIGHT WITHIN REACH WILL CONTINUE TO MONITOR.
--- NOTE | 2018-06-23 19:35 | NUR ---
ENDORSED PT TO GEAR SETTER NURSEALFIE FOR CONTINUITY OF CARE, PT IS STABLE AT THIS TIME.
[2018-06-23 20:00] VITALS: BP 148/71
[2018-06-23] MEDS: MONTELUKAST SODIUM 10 MG TAB PO SCH (20:42)
[2018-06-23] MEDS: LORazepam 1 MG TAB PO SCH (22:34)
[2018-06-24] VITALS: BP 133/81
[2018-06-24] MEDS: methylPREDNISolone SS 40 MG/ML VIAL IVP SCH ×3 (05:53→21:00)
[2018-06-24 06:00] VITALS: BP 115/70
[2018-06-24 06:25] LABS: BASOPHILS # (AUTO) 0.1 K/uL (0.00-0.22); BASOPHILS % (AUTO) 0.5 % (0.0-2.0); HEMATOCRIT 37.7 % (36-48); HEMOGLOBIN 12.4 g/dL (12.0-16.0); LYMPHOCYTES # (AUTO) 0.6 K/uL (2.5-16.5); LYMPHOCYTES % (AUTO) 5.6 % (20.5-51.1); MEAN CORPUSCULAR HEMOGLOBIN 30 pg (27-31); MEAN CORPUSCULAR HGB CONC 33 g/dL (33-37); MEAN CORPUSCULAR VOLUME 92.3 fL (80-94); MONOCYTES # (AUTO) 0.1 K/uL (0.8-1.0); MONOCYTES % (AUTO) 1.2 % (1.7-9.3); NEUTROPHILS # (AUTO) 9.2 K/uL (1.8-7.7); NEUTROPHILS % (AUTO) 92.7 % (42.2-75.2); PLATELET COUNT (AUTO) 105 K/uL (140-450); RED BLOOD CELL COUNT(AUTO) 4.09 MIL/uL (4.20-5.40); RED CELL DISTRIBUTION WIDTH 14.3 % (11.6-13.7); WHITE BLOOD COUNT (AUTO) 9.9 K/uL (4.8-10.8)
[2018-06-24] MEDS: FAMOTIDINE 20 MG TAB PO SCH (06:35)
[2018-06-24 06:37] LABS: ANION GAP 10.5 (8-16); CARBON DIOXIDE 24.6 mmol/L (21-32); CHLORIDE 111 mmol/L (98-107); CREATININE 1.1 mg/dL (0.6-1.3); GLUCOSE 129 mg/dL (74-106); POTASSIUM 4.1 mmol/L (3.5-5.1); SODIUM SERUM 142 mmol/L (136-145); UREA NITROGEN, BLOOD 26 mg/dL (7-18)
[2018-06-24 06:49] LABS: MAGNESIUM 2.4 mg/dL (1.8-2.4); PHOSPHORUS 3.6 mg/dL (2.5-4.9)
[2018-06-24 06:51] LABS: CHOL/HDL RATIO 2.4 (1-4.5)
[2018-06-24] MEDS: ALBUTEROL SULFATE/IPRATROPIU 3 ML SOL IH SCH ×3 (07:22→19:00)
--- NOTE | 2018-06-24 07:28 | NUR ---
ENDORSED REPORT TO DAYSHIFT NURSE AT BEDSIDE FOR CONTINUITY OF CARE.
--- NOTE | 2018-06-24 07:29 | NUR ---
RECEIVED BEDSIDE REPORT FROM TIM JUDGE. PT STABLE, AWAKE, AND ALERT. AMBULATES TO THE BATHROOM. INSTRUCTED PT TO CALL RN BEFORE AMBULATING. DENIES PAIN. NO SIGNS OF DISTRESS NOTED. NO REDNESS, SWELLING, OR INFLAMMATION NOTED ON IV SITE. BED IN LOW POSITION. CALL MCKINLEY WITHIN REACH. SAFETY MEASURES IN PLACE. PLAN OF CARE REVIEWED.
[2018-06-24 08:00] VITALS: BP 118/68
[2018-06-24] MEDS: LORATADINE 10 MG TAB PO SCH (08:34)
[2018-06-24] MEDS: OXYBUTYNIN 5 MG TAB PO SCH ×2 (08:34→21:07)
[2018-06-24] MEDS: guaiFENesin 600 MG TABER PO SCH ×2 (08:34→21:00)
--- NOTE | 2018-06-24 08:35 | NUR ---
ADMINISTERED SCHEDULED MEDICATIONS. PT TOLERATED WELL.
--- NOTE | 2018-06-24 08:45 | NUR ---
PT AT THE BEDSIDE. PATIENT AMBULATING IN THE HALLWAY, O2 SAT 94% PER PT.
--- NOTE | 2018-06-24 09:20 | NUR ---
decreased fio2 to .80 dr cabral bedside
[2018-06-24] MEDS: NACL 0.9% 1,000 ML IV SCH (11:02)
--- NOTE | 2018-06-24 11:20 | NUR ---
PT STABLE, AWAKE, AND ALERT SITTING BY THE BEDSIDE.
[2018-06-24 12:00] VITALS: BP 126/76
--- NOTE | 2018-06-24 13:22 | NUR ---
ADMINISTERED SCHEDULED MEDICATIONS. PT TOLERATED WELL.
--- NOTE | 2018-06-24 15:25 | NUR ---
PT STABLE, AWAKE, AND ALERT. PLAN OF CARE REVIEWED WITH PT.
[2018-06-24 16:00] VITALS: BP 131/64
--- NOTE | 2018-06-24 17:25 | NUR ---
DR. CALLEJAS AT THE BEDSIDE TO DISCUSS PLAN OF CARE.
--- NOTE | 2018-06-24 19:27 | NUR ---
RECEIVED REPORT FROM PAT WALLACE AT BEDSIDE FOR CONTINUITY OF CARE, PT IN STABLE CONDITION.
--- NOTE | 2018-06-24 19:28 | NUR ---
ENDORSED PT TO TIM THURSTON FOR CONTINUITY OF CARE. PT STABLE, AWAKE, AND ALERT.
[2018-06-24 20:00] VITALS: BP 136/77
--- NOTE | 2018-06-24 20:00 | NUR ---
PT IS AOX4, SHE IS UP AND AMBULATING WITH A STEADY GAIT AROUND THE ROOM. PT V/S FOLLOWS T 97.9 P 97 R 20 B/P 136/77 02 93% ON ROOM AIR. PT LUNG SOUNDS CLEAR BUT BREATH SOUNDS DIMINISHED , SHE HAS NO SOB NOTED AND NO C/O OF PAIN OR DISTRESS NOTED. PT REQUESTING HER ATIVAN AND MEDICATION FOR OVERACTIVE BLADDER.
--- NOTE | 2018-06-24 20:30 | NUR ---
PT REQUEST LEFT AC IV SITE BE DISCONTINUED DUE TO DISCOMFORT. IV SITE TAKEN OUT WITH CANNULA INTACT. PT GIVEN DUE MEDS OF ATIVAN AND DITROPAN ORDERED. PT REFUSED SINGULAR AND MUCINEX, SAYING THAT SHE DOESN'T NEED MUCINEX AND SHE SAID THAT SHE WILL TAKE SINGULAR TOMORROW. MEDICATION EDUCATION PROVIDED FOR ALL MEDICATIONS. RISKS AND BENEFITS EXPLAINED FOR SINGULAR AND MUCINEX. PT CONTINUED TO DECLINE MEDICATION.PT HAD HER BED MADE UP AND SHE SAID THAT SHE WANTED TO GO TO BED NOW. BED IN LOW POSITION WITH SIDE RAILS UP. ALL FALLS PRECAUTIONS IN PLACE.
[2018-06-24] MEDS: MONTELUKAST SODIUM 10 MG TAB PO SCH (21:00)
[2018-06-24] MEDS: LORazepam 1 MG TAB PO SCH (21:07)
[2018-06-25] VITALS: BP 126/75
--- NOTE | 2018-06-25 | NUR ---
PT IN BED RESTING, SHE REQUESTED TO HAVE HER SWEATER ON. PT ASSISTED WITH SWEATER. NO C/O OF PAIN OR DISTRESS NOTED V/S FOLLOWS : T 97.5 P 90 R 18 B/P 126/75 02 95% ON R/A. ALL FALLS PRECAUTIONS IN PLACE AND CALL MCKINLEY IN REACH.
--- NOTE | 2018-06-25 01:30 | NUR ---
PT AMBULATED TO TOILET AND BACK WITH NO ISSUES. PT C/O IV SITE IN THE WAY AND ASKED IF WE CAN STOP IV. PT IV IS RUNNING At 20MLS/HR. IV SITE SALINE LOCKED AT THIS TIME. AWARE.
--- NOTE | 2018-06-25 03:30 | NUR ---
PT IN BED SLEEPING IN S/S OF PAIN AND DISTRESS NOTED.
[2018-06-25 06:25] LABS: HEMATOCRIT 35.7 % (36-48); HEMOGLOBIN 11.8 g/dL (12.0-16.0); LYMPHOCYTES # (AUTO) 0.6 K/uL (2.5-16.5); LYMPHOCYTES % (AUTO) 5.5 % (20.5-51.1); MEAN CORPUSCULAR HEMOGLOBIN 31 pg (27-31); MEAN CORPUSCULAR HGB CONC 33 g/dL (33-37); MEAN CORPUSCULAR VOLUME 92.4 fL (80-94); MONOCYTES # (AUTO) 0.5 K/uL (0.8-1.0); MONOCYTES % (AUTO) 4.6 % (1.7-9.3); NEUTROPHILS # (AUTO) 9.3 K/uL (1.8-7.7); NEUTROPHILS % (AUTO) 89.9 % (42.2-75.2); PLATELET COUNT (AUTO) 135 K/uL (140-450); RED BLOOD CELL COUNT(AUTO) 3.86 MIL/uL (4.20-5.40); RED CELL DISTRIBUTION WIDTH 14.1 % (11.6-13.7); WHITE BLOOD COUNT (AUTO) 10.4 K/uL (4.8-10.8)
[2018-06-25 06:34] LABS: ANION GAP 8.2 (8-16); CARBON DIOXIDE 27.1 mmol/L (21-32); CHLORIDE 112 mmol/L (98-107); GLUCOSE 107 mg/dL (74-106); MAGNESIUM 2.5 mg/dL (1.8-2.4); PHOSPHORUS 3.9 mg/dL (2.5-4.9); POTASSIUM 4.3 mmol/L (3.5-5.1); SODIUM SERUM 143 mmol/L (136-145); UREA NITROGEN, BLOOD 32 mg/dL (7-18)
--- NOTE | 2018-06-25 06:50 | NUR ---
PT CONCERNED ABOUT HER INHALER. PT WAS TOLD THAT SHE HAS A DUO NEB TXTMENT GIVEN AT 0700. RT CALLED TO REMIND THEM.
--- NOTE | 2018-06-25 07:15 | NUR ---
REPORT GIVEN TO PAT WALLACE AT BEDSIDE FOR CONTINUITY OF CARE, PT IN STABLE CONDITION.
--- NOTE | 2018-06-25 07:16 | NUR ---
RECEIVED BEDSIDE REPORT FROM TIM THURSTON. PT STABLE, AWAKE, AND ALERT. NO SIGNS OF DISTRESS NOTED. DENIES PAIN. NO INFLAMMATION, REDNESS, OR SWELLING NOTED ON IV SITE. CALL MCKINLEY WITHIN REACH. BED IN LOW POSITION. SAFETY MEASURES IN PLACE. PLAN OF CARE REVIEWED.
[2018-06-25] MEDS: ALBUTEROL SULFATE/IPRATROPIU 3 ML SOL IH SCH ×2 (07:29→13:00)
[2018-06-25 08:00] VITALS: BP 129/63
[2018-06-25] MEDS: FAMOTIDINE 20 MG TAB PO SCH (08:24)
[2018-06-25] MEDS: OXYBUTYNIN 5 MG TAB PO SCH (08:25)
[2018-06-25] MEDS: LORATADINE 10 MG TAB PO SCH (08:25)
[2018-06-25] MEDS: guaiFENesin 600 MG TABER PO SCH (08:25)
--- NOTE | 2018-06-25 08:30 | NUR ---
ADMINISTERED SCHEDULED MEDICATIONS. PT TOLERATED WELL. NO OTHER NEEDS AT THIS TIME.
[2018-06-25] MEDS ORDERED: methylPREDNISolone SS 40 MG/ML VIAL IVP SCH (09:00)
[2018-06-25] MEDS: NACL 0.9% 1,000 ML IV SCH (11:02)
[2018-06-25] MEDS ORDERED: LORA10TA19 PO (11:24)
[2018-06-25] MEDS ORDERED: DIT5 PO (11:24)
[2018-06-25] MEDS ORDERED: PRED10TA6 PO (11:24)
--- NOTE | 2018-06-25 11:40 | NUR ---
PT WALKING IN THE ROOM WITH STEADY GAIT.
--- NOTE | 2018-06-25 14:30 | NUR ---
PT STABLE, AWAKE, AND ALERT. NO OTHER NEEDS AT THIS TIME.
--- NOTE | 2018-06-25 16:30 | NUR ---
D/C INSTRUCTIONS GIVEN. PT AND FAMILY VERBALIZED UNDERSTANDING. QUESTIONS AND CONCERNS WERE ADDRESSED. D/C IV, CATHETER TIP INTACT, BLEEDING CONTROLLED. ESCORTED PT TO THE LOBBY.
== END 2018-06-25 16:30 | disposition home or self-care (01) | DRG 190 ==
LOC: MED 21:57 → MTU 06-23 01:42
PROVIDERS: ADMIT General Practice; ATTEND General Practice
DX: J44.1 Chronic obstructive pulmonary disease with (acute) exacerbation (principal); N17.0 Acute kidney failure with tubular necrosis; R65.10 Systemic inflammatory response syndrome (SIRS) of non-infectious origin without acute organ dysfunction; N32.81 Overactive bladder; E83.41 Hypermagnesemia; E87.8 Other disorders of electrolyte and fluid balance, not elsewhere classified; E83.51 Hypocalcemia; R31.9 Hematuria, unspecified; M19.90 Unspecified osteoarthritis, unspecified site; H81.10 Benign paroxysmal vertigo, unspecified ear; Z79.899 Other long term (current) drug therapy; Z79.51 Long term (current) use of inhaled steroids; Z90.49 Acquired absence of other specified parts of digestive tract; Z98.891 History of uterine scar from previous surgery
CPT/HCPCS: 36415; 71045; 80048; 80053; 81001; 82150; 83036; 83605; 83690; 83735; 83880; 84100; 84443; 85025; 85610; 85730; 87040; 87081; 87804; 93005; 94640; 96374; 97110; 97116; 97530; 99285; J1644; J2920; J2930; J3475; J7030; J7613; J7620; J7644; Q0092

== ENCOUNTER 2018-12-21 11:45 | Emergency (ER) | payer OTHER ==
[~2018-12-21] VITALS: Ht 162.6 cm; Wt 70.8 kg
[~2018-12-21 11:45] MED LIST changes: -ATOR20TA40 PO; -BLEOS OP; +DIT5 PO; -FLONAS NS; +LORA10TA19 PO; +PRED10TA6 PO; -SERT50TA PO
--- NOTE | 2018-12-21 11:58 | NUR ---
PT TO ER BED 3
--- NOTE | 2018-12-21 12:05 | NUR ---
PT PRESENTS TO ED WITH C/O LOWER BACK PAIN X 1 WEEK. DENIES ANY TRAUMA/INJURY OR DYSURIA. PT STATES PAIN IS 5/10 AT THIS TIME. DENIES ANY N/V/D OR FEVER; AFEBRILE AT THIS TIME. VSS. MED HX:ASTHMA, VERTIGO ALLERGIES: NKA
[2018-12-21 12:10] VITALS: BP 132/62
[2018-12-21] MEDS ORDERED: NACL 0.9% 500 ML IV SCH (12:21)
--- NOTE | 2018-12-21 12:28 | NUR ---
pm technician at bedside.
[2018-12-21 13:14] LABS: EOSINOPHILS # (AUTO) 0.4 K/uL (0-0.4); EOSINOPHILS % (AUTO) 7.3 % (0.0-4.0); HEMATOCRIT 36.4 % (36-48); HEMOGLOBIN 12.2 g/dL (12.0-16.0); LYMPHOCYTES # (AUTO) 1.1 K/uL (2.5-16.5); MEAN CORPUSCULAR HEMOGLOBIN 30 pg (27-31); MEAN CORPUSCULAR HGB CONC 34 g/dL (33-37); MEAN CORPUSCULAR VOLUME 89.7 fL (80-94); MONOCYTES # (AUTO) 0.5 K/uL (0.8-1.0); NEUTROPHILS # (AUTO) 3.1 K/uL (1.8-7.7); NEUTROPHILS % (AUTO) 59.7 % (42.2-75.2); PLATELET COUNT (AUTO) 129 K/uL (140-450); RED BLOOD CELL COUNT(AUTO) 4.05 MIL/uL (4.20-5.40); WHITE BLOOD COUNT (AUTO) 5.2 K/uL (4.8-10.8)
[2018-12-21 13:32] LABS: BILIRUBIN,URINE NEGATIVE (NEGATIVE); BLOOD, URINE TRACE-L (NEGATIVE); COLOR,URINE YELLOW (YELLOW); LEUKOCYTE ESTERASE ,URINE NEGATIVE (NEGATIVE); NITRITE, URINE NEGATIVE (NEGATIVE); UGLUCOSE NEGATIVE (NEGATIVE)
[2018-12-21 13:33] LABS: ALBUMIN 3.4 g/dL (3.4-5.0); ASPARTATE AMINOTRANSFERASE 25 U/L (15-37); CARBON DIOXIDE 29.4 mmol/L (21-32); CHLORIDE 105 mmol/L (98-107); GLUCOSE 97 mg/dL (74-106); POTASSIUM 4.4 mmol/L (3.5-5.1); SODIUM SERUM 141 mmol/L (136-145); TOTAL BILIRUBIN 0.3 mg/dL (0.0-1.0); UREA NITROGEN, BLOOD 19 mg/dL (7-18)
--- NOTE | 2018-12-21 13:40 | NUR ---
Patient appears to be resting comfortably in bed. Vital Signs within normal limits. Respirations even and unlabored.
[2018-12-21 13:44] LABS: APPEARANCE,URINE HAZY (CLEAR)
[2018-12-21 13:49] LABS: RBC,URINE 0-5 /HPF (0-5); WBC,URINE 0-5 /HPF (0-5)
[2018-12-21] MEDS ORDERED: AMOX500C25 PO (14:44)
[2018-12-21] MEDS ORDERED: PRON INH (14:44)
[2018-12-21] MEDS ORDERED: MONT10TA35 PO (14:44)
[2018-12-21] MEDS ORDERED: MECL-272 PO (14:44)
--- NOTE | 2018-12-21 14:54 | NUR ---
Dr. Lopez re-evaluating patient at bedside.
[2018-12-21 15:33] VITALS: BP 122/72
== END 2018-12-21 15:30 | disposition home or self-care (01) ==
LOC: MED 11:45
DX: M54.5 Low back pain (principal); R06.02 Shortness of breath; J44.9 Chronic obstructive pulmonary disease, unspecified; Z79.899 Other long term (current) drug therapy
CPT/HCPCS: 36415; 71045; 72131; 80053; 81001; 83605; 83880; 84484; 85025; 85610; 85730; 87040; 87086; 93005; 99284; J7030; Q0092

== ENCOUNTER 2019-07-16 20:37 | Emergency (ER) | payer OTHER, MEDICAID ==
[~2019-07-16] VITALS: Ht 167.6 cm; Wt 55.3 kg
[~2019-07-16 20:37] MED LIST changes: +AMOX500C25 PO; -MECL-272 PO; +MECL-303 PO
--- NOTE | 2019-07-16 20:39 | NUR ---
PT W/C ASSISTED TO BED 2
[2019-07-16 20:43] VITALS: BP 194/90
--- NOTE | 2019-07-16 20:55 | NUR ---
83 Y/O FEMALE PRESENTS TO ED, C/O SOB. PT STATES BEING ADMITTED TO HOSPITAL MAY FOR RESPIRATORY FAILURE. PT HAS BEEN HAVING INTERMITTENT DIFFICULTY BREATHING. PT STATES WORSENING TODAY DUE TO COPD EXACERBATION. BILAT UPPER LOBE WHEEZING, MORE AUDIBLE ON RIGHT SIDE. PT TOOK PREDNISONE AT 1800 TODAY WITH NO RELIEF. PT PLACED ON MONITOR. DENIES ANY CHEST PAIN. SPO2 AT 97% ROOM AIR. ERMD AWARE. WILL CONTINUE TO MONITOR.
[2019-07-16] MEDS ORDERED: DEXAMETHASONE 10 MG/ML VIAL IVP ONE (21:25)
[2019-07-16] MEDS ORDERED: ALBUTEROL 0.083% 2.5 MG/3 ML NEBU INH ONE (21:25)
--- NOTE | 2019-07-16 21:51 | NUR ---
H/L 22G PLACED IN RIGHT HAND. IV MEDICATION GIVEN. PT ON BREATHING TREATMENT
--- NOTE | 2019-07-16 22:06 | NUR ---
Dr. Dawkins examining patient.
--- NOTE | 2019-07-16 22:20 | NUR ---
XRAY AT BEDSIDE
[2019-07-16] MEDS ORDERED: ALBUTEROL SULFATE/IPRATROPIU 3 ML SOL IH ONE (22:45)
--- NOTE | 2019-07-16 23:01 | NUR ---
RT AT BEDSIDE WITH BREATHING TX
[2019-07-17 00:55] VITALS: BP 122/63
--- NOTE | 2019-07-17 00:55 | NUR ---
PT DISCHARGED WITH PAPERWORK. EDUCATED PT REGARDING MEDICATIONS AND D/C INSTRUCTIONS. PT VERBALIZED UNDERSTANDING. TOLD PT TO FOLLOW UP WITH PCP AND WHEN TO RETURN TO ED. PT STABLE CONDITION. DENIES SOB/DIFFICULTY BREATHING. ALL QUESTIONS ANSWERED.
== END 2019-07-17 00:55 | disposition home or self-care (01) ==
LOC: MED 20:37
DX: J44.9 Chronic obstructive pulmonary disease, unspecified (principal); Z79.899 Other long term (current) drug therapy
CPT/HCPCS: 71045; 94640; 96374; 99284; J1100; J7613; J7620; Q0092

== ENCOUNTER 2019-12-03 21:01 | Inpatient (IN) | payer OTHER, MEDICAID, SELFPAY ==
[~2019-12-03] VITALS: Ht 154.9 cm; Wt 59.0 kg
[~2019-12-03 21:01] MED LIST changes: -ACET-7568 PO; +ACET-8296 PO
[2019-12-03 21:02] VITALS: BP 192/100
[2019-12-03] MEDS ORDERED: ALBUTEROL 0.083% 2.5 MG/3 ML NEBU INH ONE (21:10)
[2019-12-03] MEDS ORDERED: MAG SULF 2000 MG/WATER PREMIX 50 ML IV ONE (21:10)
[2019-12-03] MEDS ORDERED: IPRATROPIUM 0.02% 0.5 MG/2.5 ML NEBU INH ONE (21:10)
[2019-12-03] MEDS ORDERED: methylPREDNISolone SS 125 MG/2 ML VIAL IVP ONE (21:10)
[2019-12-03 21:28] LABS: BASOPHILS # (AUTO) 0.1 K/uL (0.00-0.22); EOSINOPHILS # (AUTO) 0.4 K/uL (0-0.4); EOSINOPHILS % (AUTO) 4.3 % (0.0-4.0); HEMATOCRIT 39.9 % (36-48); HEMOGLOBIN 13.3 g/dL (12.0-16.0); LYMPHOCYTES % (AUTO) 21.8 % (20.5-51.1); MEAN CORPUSCULAR HEMOGLOBIN 31 pg (27-31); MEAN CORPUSCULAR HGB CONC 33 g/dL (33-37); MEAN CORPUSCULAR VOLUME 92.3 fL (80-94); MONOCYTES # (AUTO) 0.9 K/uL (0.8-1.0); MONOCYTES % (AUTO) 10.1 % (1.7-9.3); NEUTROPHILS # (AUTO) 5.8 K/uL (1.8-7.7); NEUTROPHILS % (AUTO) 62.8 % (42.2-75.2); PLATELET COUNT (AUTO) 174 K/uL (140-450); RED BLOOD CELL COUNT(AUTO) 4.32 MIL/uL (4.20-5.40); WHITE BLOOD COUNT (AUTO) 9.3 K/uL (4.8-10.8)
[2019-12-03 21:39] LABS: C-REACTIVE PROTEIN QUANT 0.4 mg/dL (0.0-0.9)
[2019-12-03 21:41] LABS: ANION GAP 12.6 (8-16); CARBON DIOXIDE 30.3 mmol/L (21-32); CHLORIDE 104 mmol/L (98-107); CREATININE 1.4 mg/dL (0.6-1.3); GLUCOSE 132 mg/dL (74-106); POTASSIUM 3.9 mmol/L (3.5-5.1); SODIUM SERUM 143 mmol/L (136-145); UREA NITROGEN, BLOOD 35 mg/dL (7-18)
[2019-12-03 21:45] LABS: LACTATE DEHYDROGENASE 179 U/L (81-234)
[2019-12-03 21:55] LABS: ALBUMIN 3.9 g/dL (3.4-5.0); ASPARTATE AMINOTRANSFERASE 20 U/L (15-37); TOTAL BILIRUBIN 0.3 mg/dL (0.0-1.0)
[2019-12-03] MEDS ORDERED: ENALAPRILAT 2.5 MG/2 ML VIAL IVP ONE (22:00)
[2019-12-03] MEDS ORDERED: ALBUTEROL SULFATE/IPRATROPIU 3 ML SOL IH ONE (22:35)
[2019-12-04 00:07] LABS: RSV NEGATIVE (NEGATIVE)
[2019-12-04] MEDS: NACL 0.9% 1,000 ML IV SCH ×2 (00:19→21:46)
[2019-12-04] MEDS ORDERED: AZITHROMYCIN 250 MG TAB PO SCH (00:20)
[2019-12-04] MEDS ORDERED: ACETAMINOPHEN 325 MG TAB PO PRN ×2 (00:20→09:50)
[2019-12-04] MEDS ORDERED: ONDANSETRON 4 MG/2 ML VIAL IVP PRN ×2 (00:20→09:50)
[2019-12-04] MEDS ORDERED: BENZONATATE 100 MG CAPLF PO PRN (00:20)
[2019-12-04] MEDS ORDERED: ALBUTEROL HFA MDI 90 MCG/ACTUATION 8 GM INH PRN (00:20)
[2019-12-04] MEDS ORDERED: LORazepam 0.5 MG TAB PO ONE (01:30)
[2019-12-04 02:11] LABS: FREE T4 (FREE THYROXINE) 1.02 ng/dL (0.76-1.46); MAGNESIUM 2.2 mg/dL (1.8-2.4); PHOSPHORUS 4.6 mg/dL (2.5-4.9); THYROID STIMULATING HORMONE 3.04 uIU/mL (0.34-3.74)
[2019-12-04] MEDS ORDERED: LORA-476 PO (04:36)
[2019-12-04] MEDS ORDERED: PRED10TA5 PO (04:36)
[2019-12-04] MEDS ORDERED: ACET-503 PO (04:36)
[2019-12-04] MEDS ORDERED: AMOX500C25 PO (04:36)
[2019-12-04] MEDS ORDERED: ALBU1.25 NEB (04:40)
[2019-12-04] MEDS ORDERED: UMEC1POW IH (04:40)
[2019-12-04] MEDS ORDERED: PRED1TAB2 PO (05:02)
[2019-12-04] MEDS: methylPREDNISolone SS 125 MG/2 ML VIAL IVP SCH ×3 (06:00→21:44)
[2019-12-04] MEDS ORDERED: cefTRIAXone 1,000 MG VIAL ONE (07:10)
[2019-12-04 07:25] LABS: HEMATOCRIT 38.2 % (36-48); HEMOGLOBIN 12.5 g/dL (12.0-16.0); MEAN CORPUSCULAR HEMOGLOBIN 31 pg (27-31); MEAN CORPUSCULAR HGB CONC 33 g/dL (33-37); MEAN CORPUSCULAR VOLUME 93.4 fL (80-94); PLATELET COUNT (AUTO) 153 K/uL (140-450); RED BLOOD CELL COUNT(AUTO) 4.09 MIL/uL (4.20-5.40); RED CELL DISTRIBUTION WIDTH 14.9 % (11.6-13.7); WHITE BLOOD COUNT (AUTO) 6.4 K/uL (4.8-10.8)
[2019-12-04 07:41] LABS: ANION GAP 16.8 (8-16); CARBON DIOXIDE 23.8 mmol/L (21-32); CHLORIDE 106 mmol/L (98-107); CREATININE 1.2 mg/dL (0.6-1.3); GLUCOSE 144 mg/dL (74-106); POTASSIUM 4.6 mmol/L (3.5-5.1); SODIUM SERUM 142 mmol/L (136-145); UREA NITROGEN, BLOOD 26 mg/dL (7-18)
[2019-12-04 07:46] LABS: ALBUMIN 3.3 g/dL (3.4-5.0); ANION GAP 15.9 (8-16); ASPARTATE AMINOTRANSFERASE 18 U/L (15-37); CARBON DIOXIDE 24.8 mmol/L (21-32); CHLORIDE 106 mmol/L (98-107); CREATININE 1.3 mg/dL (0.6-1.3); GLUCOSE 146 mg/dL (74-106); LACTATE DEHYDROGENASE 149 U/L (81-234); MAGNESIUM 2.5 mg/dL (1.8-2.4); PHOSPHORUS 3.8 mg/dL (2.5-4.9); POTASSIUM 4.7 mmol/L (3.5-5.1); SODIUM SERUM 142 mmol/L (136-145); TOTAL BILIRUBIN 0.3 mg/dL (0.0-1.0); UREA NITROGEN, BLOOD 27 mg/dL (7-18)
[2019-12-04 07:54] LABS: LYMPHOCYTES % (MANUAL) 4 % (20-46)
[2019-12-04 07:55] LABS: MONOCYTES % (MANUAL) 2 % (5-12)
[2019-12-04] MEDS: ASCORBIC ACID 500 MG TAB PO SCH (08:24)
[2019-12-04] MEDS: DOCUSATE SODIUM 100 MG GELCAP PO SCH ×2 (08:24→21:44)
[2019-12-04] MEDS: ZINC SULF 220 MG CAP PO SCH (08:25)
[2019-12-04] MEDS: AZITHROMYCIN 250 MG TAB PO SCH (08:25)
[2019-12-04] MEDS ORDERED: LOVENOX 1MG/KG Q12H SUBQ SCH (09:00)
[2019-12-04] MEDS: LORazepam 1 MG TAB PO SCH (09:00)
[2019-12-04] MEDS: VITAMIN D 400 IU TAB PO SCH (09:21)
[2019-12-04] MEDS: guaiFENesin 600 MG TABER PO SCH ×2 (09:22→21:45)
[2019-12-04] MEDS: ALBUTEROL HFA MDI 90 MCG/ACTUATION 8 GM INH SCH ×3 (09:45→18:00)
[2019-12-04] MEDS ORDERED: MORPHINE SULFATE 2 MG/ML SYR IVP PRN (09:50)
[2019-12-04] MEDS ORDERED: DOCUSATE SODIUM 100 MG GELCAP PO PRN (09:50)
[2019-12-04] MEDS ORDERED: MAG SULF 2000 MG/WATER PREMIX 50 ML IV PRN (09:50)
[2019-12-04] MEDS ORDERED: LORazepam 2 MG/ML VIAL IVP PRN (09:50)
[2019-12-04] MEDS ORDERED: POTASSIUM CHLORIDE 10 MEQ TABER PO PRN (09:50)
[2019-12-04] MEDS ORDERED: ZOLPIDEM 10 MG TAB PO PRN (09:50)
[2019-12-04 14:40] LABS: APPEARANCE,URINE CLEAR (CLEAR); COLOR,URINE YELLOW (YELLOW)
[2019-12-04 14:41] LABS: BILIRUBIN,URINE NEGATIVE (NEGATIVE); BLOOD, URINE TRACE (NEGATIVE); LEUKOCYTE ESTERASE ,URINE NEGATIVE (NEGATIVE); NITRITE, URINE NEGATIVE (NEGATIVE); UGLUCOSE NEGATIVE (NEGATIVE)
[2019-12-04 14:51] LABS: CALCIUM OXALATE CRYSTALS,UR 0-10 /HPF (None Seen); RBC,URINE 0-5 /HPF (0-5); WBC,URINE NONE SEEN /HPF (0-5)
[2019-12-05] MEDS: ALBUTEROL HFA MDI 90 MCG/ACTUATION 8 GM INH SCH (00:08)
[2019-12-05] MEDS: methylPREDNISolone SS 40 MG/ML VIAL IVP SCH ×2 (05:33→13:00)
[2019-12-05] MEDS ORDERED: ENOXAPARIN 60 MG/0.6 ML SYR SUBQ SCH (06:00)
[2019-12-05 06:32] LABS: BASOPHILS % (AUTO) 0.1 % (0.0-2.0); HEMATOCRIT 36.9 % (36-48); HEMOGLOBIN 12.2 g/dL (12.0-16.0); LYMPHOCYTES # (AUTO) 0.6 K/uL (2.5-16.5); LYMPHOCYTES % (AUTO) 3.5 % (20.5-51.1); MEAN CORPUSCULAR HEMOGLOBIN 31 pg (27-31); MEAN CORPUSCULAR HGB CONC 33 g/dL (33-37); MEAN CORPUSCULAR VOLUME 92.9 fL (80-94); MONOCYTES # (AUTO) 0.3 K/uL (0.8-1.0); MONOCYTES % (AUTO) 1.6 % (1.7-9.3); NEUTROPHILS % (AUTO) 94.8 % (42.2-75.2); PLATELET COUNT (AUTO) 156 K/uL (140-450); RED BLOOD CELL COUNT(AUTO) 3.97 MIL/uL (4.20-5.40); RED CELL DISTRIBUTION WIDTH 15.1 % (11.6-13.7); WHITE BLOOD COUNT (AUTO) 15.8 K/uL (4.8-10.8)
[2019-12-05 06:49] LABS: CHOL/HDL RATIO 2.3 (1-4.5)
[2019-12-05 06:50] LABS: CARBON DIOXIDE 24.1 mmol/L (21-32); CHLORIDE 109 mmol/L (98-107); CREATININE 1.2 mg/dL (0.6-1.3); GLUCOSE 139 mg/dL (74-106); POTASSIUM 4.1 mmol/L (3.5-5.1); SODIUM SERUM 142 mmol/L (136-145); UREA NITROGEN, BLOOD 23 mg/dL (7-18)
[2019-12-05] MEDS: NACL 0.9% 1,000 ML IV SCH (09:35)
[2019-12-05] MEDS: ASCORBIC ACID 500 MG TAB PO SCH (09:38)
[2019-12-05] MEDS: AZITHROMYCIN 250 MG TAB PO SCH (09:38)
[2019-12-05] MEDS: LORazepam 1 MG TAB PO SCH (09:38)
[2019-12-05] MEDS: ZINC SULF 220 MG CAP PO SCH (09:38)
[2019-12-05] MEDS: VITAMIN D 400 IU TAB PO SCH (09:39)
[2019-12-05] MEDS: guaiFENesin 600 MG TABER PO SCH (09:39)
[2019-12-05] MEDS: DOCUSATE SODIUM 100 MG GELCAP PO SCH (09:39)
[2019-12-05] MEDS ORDERED: AZIT250T3 PO (11:43)
[2019-12-05] MEDS ORDERED: [UNRECOGNIZED DRUG - OTHER] (11:43)
[2019-12-05 12:33] VITALS: BP 121/58
[2019-12-06] MEDS ORDERED: DEXAMETHASONE 6 MG TAB PO SCH (09:00)
[2019-12-06] MEDS ORDERED: methylPREDNISolone SS 40 MG/ML VIAL IVP SCH (09:00)
== END 2019-12-05 13:22 | disposition home or self-care (01) | DRG 189 ==
LOC: MED 21:01 → EEVIPCON 21:01 → MMU 12-04 00:19 → MTU 12-04 08:44
PROVIDERS: ADMIT General Practice; ATTEND General Practice
DX: J96.20 Acute and chronic respiratory failure, unspecified whether with hypoxia or hypercapnia (principal); N17.0 Acute kidney failure with tubular necrosis; J44.1 Chronic obstructive pulmonary disease with (acute) exacerbation; E87.2 Acidosis; H81.10 Benign paroxysmal vertigo, unspecified ear; I10 Essential (primary) hypertension; Z20.828 Contact with and (suspected) exposure to other viral communicable diseases; E78.5 Hyperlipidemia, unspecified; R73.03 Prediabetes; Z90.49 Acquired absence of other specified parts of digestive tract; Z98.49 Cataract extraction status, unspecified eye; Z98.891 History of uterine scar from previous surgery; Z79.899 Other long term (current) drug therapy
CPT/HCPCS: 36415; 71045; 80048; 80053; 81001; 82150; 82550; 82728; 83036; 83605; 83615; 83690; 83735; 83880; 84100; 84439; 84443; 84484; 85025; 85379; 85384; 85610; 85651; 85730; 86140; 86886; 86900; 86901; 87086; 87420; 87804; 93005; 94664; 96374; 99291; J0696; J1650; J2060; J2920; J2930; J3475; J3490; J7060; Q0092; U0003-CS

== ENCOUNTER 2020-12-15 13:07 | Emergency (ER) | payer OTHER, MEDICAID ==
[~2020-12-15] VITALS: Ht 170.2 cm; Wt 60.8 kg
[~2020-12-15 13:07] MED LIST changes: +ACET-503 PO; -ACET-8296 PO; -ALBU0.0912 IH; +ALBU1.25 NEB; -AMOX500C25 PO; +AZIT250T3 PO; -DIT5 PO; -LORA10TA19 PO; -MECL-303 PO; -MONT10TA35 PO; +PRED10TA5 PO; -PRED10TA6 PO; -PRON INH; +UMEC1POW IH; +[UNRECOGNIZED DRUG - OTHER]
[2020-12-15 13:16] VITALS: BP 136/78
[2020-12-15] MEDS ORDERED: SODIUM CHLORIDE FLUSH 10 ML SYR IVF STA (14:36)
[2020-12-15 15:11] LABS: BASOPHILS % (AUTO) 0.8 % (0.0-2.0); EOSINOPHILS # (AUTO) 0.1 K/uL (0-0.4); EOSINOPHILS % (AUTO) 2.3 % (0.0-4.0); HEMATOCRIT 37.1 % (36-48); HEMOGLOBIN 12.6 g/dL (12.0-16.0); LYMPHOCYTES # (AUTO) 1.1 K/uL (2.5-16.5); LYMPHOCYTES % (AUTO) 17.3 % (20.5-51.1); MEAN CORPUSCULAR HEMOGLOBIN 31 pg (27-31); MEAN CORPUSCULAR HGB CONC 34 g/dL (33-37); MEAN CORPUSCULAR VOLUME 92.8 fL (80-94); MONOCYTES # (AUTO) 0.5 K/uL (0.8-1.0); MONOCYTES % (AUTO) 7.8 % (1.7-9.3); NEUTROPHILS # (AUTO) 4.5 K/uL (1.8-7.7); NEUTROPHILS % (AUTO) 71.8 % (42.2-75.2); PLATELET COUNT (AUTO) 146 K/uL (140-450); RED BLOOD CELL COUNT(AUTO) 3.99 MIL/uL (4.20-5.40); RED CELL DISTRIBUTION WIDTH 14.4 % (11.6-13.7); WHITE BLOOD COUNT (AUTO) 6.2 K/uL (4.8-10.8)
[2020-12-15 15:13] LABS: APPEARANCE,URINE CLEAR (CLEAR); BILIRUBIN,URINE NEGATIVE (NEGATIVE); BLOOD, URINE TRACE-I (NEGATIVE); COLOR,URINE YELLOW (YELLOW); LEUKOCYTE ESTERASE ,URINE NEGATIVE (NEGATIVE); NITRITE, URINE NEGATIVE (NEGATIVE); PH,URINE 6.5 (5.0-9.0); UGLUCOSE NEGATIVE (NEGATIVE)
[2020-12-15 15:33] LABS: ANION GAP 11.9 (8-16); ASPARTATE AMINOTRANSFERASE 22 U/L (15-37); CARBON DIOXIDE 27.2 mmol/L (21-32); CHLORIDE 106 mmol/L (98-107); GLUCOSE 102 mg/dL (74-106); LIPASE 147 U/L (73-393); POTASSIUM 4.1 mmol/L (3.5-5.1); SODIUM SERUM 141 mmol/L (136-145); TOTAL BILIRUBIN 0.6 mg/dL (0.0-1.0); UREA NITROGEN, BLOOD 20 mg/dL (7-18)
[2020-12-15] MEDS ORDERED: PRED20TA5 PO (16:45)
[2020-12-15] MEDS ORDERED: DOXY100C9 PO (16:47)
[2020-12-15 17:07] VITALS: BP 120/54
== END 2020-12-15 17:07 | disposition home or self-care (01) ==
LOC: MED 13:07
DX: J44.1 Chronic obstructive pulmonary disease with (acute) exacerbation (principal); R12 Heartburn; R42 Dizziness and giddiness; F41.9 Anxiety disorder, unspecified; Z79.899 Other long term (current) drug therapy
CPT/HCPCS: 36415; 71045; 80053; 81003; 83690; 85025; 99284

== ENCOUNTER 2021-01-18 03:40 | Emergency (ER) | payer OTHER, MEDICAID ==
[~2021-01-18] VITALS: Ht 167.6 cm; Wt 60.8 kg
[~2021-01-18 03:40] MED LIST changes: +PRED20TA5 PO; +VIB100 PO
[2021-01-18 03:50] VITALS: BP 152/72
--- NOTE | 2021-01-18 03:58 | NUR ---
TO ER BED 1
--- NOTE | 2021-01-18 04:00 | NUR ---
85 Y/O FEMALE PT BIB DAUGHTER C/O ANXIETY. PER DAUGHTER, " PT IS TAKING LORAZEPAM FOR YEARS AND SHE HASN'T TAKEN IT FOR A WEEK BECAUSE SHE RAN OUT OF IT." PT IS TACHCARDIC AT 140s. PT KEPT SAYING, "I NEED MY TREATMENT, I'M HAVING A HARD TIME BREATHING." PT IS PUT ON O2 2L FOR COMFORT. DENIES N/V/D; SKIN IS PINK/WARM/DRY; AAOX4 WITH EVEN AND STEADY GAIT; LUNGS CLEAR BL; HR EVEN AND REGULAR; PT DENIES ANY FEVER, CP, SOB, OR COUGH AT THIS TIME; PATIENT STATES PAIN OF 7/10 ABDOMINAL PAIN AT THIS TIME; PATIENT POSITIONED FOR COMFORT; HOB ELEVATED; BEDRAILS UP X2; BED DOWN. ER MD MADE AWARE OF PT STATUS. NKA PMH: DENIES
[2021-01-18] MEDS: LORazepam 1 MG TAB PO ONE (05:05)
[2021-01-18 05:29] LABS: APPEARANCE,URINE CLEAR (CLEAR); BILIRUBIN,URINE NEGATIVE (NEGATIVE); BLOOD, URINE 1+ (NEGATIVE); COLOR,URINE YELLOW (YELLOW); LEUKOCYTE ESTERASE ,URINE NEGATIVE (NEGATIVE); NITRITE, URINE NEGATIVE (NEGATIVE); PH,URINE 6.5 (5.0-9.0); UGLUCOSE NEGATIVE (NEGATIVE)
[2021-01-18 05:40] LABS: RBC,URINE 0-5 /HPF (0-5); WBC,URINE 0-5 /HPF (0-5)
--- NOTE | 2021-01-18 05:40 | NUR ---
MOVED TO ER BED 4
[2021-01-18 06:30] VITALS: BP 137/80
--- NOTE | 2021-01-18 06:30 | NUR ---
Patient does not wish to proceed with medical care recommended by DR. ROGEL. Patient given information related to possible complications, up to and including , which could occur as a result of leaving hospital at this time. Patient verbalizes understanding of risks involved leaving against medical advice. Patient has signed AMA form.
== END 2021-01-18 06:30 | disposition left against medical advice (07) ==
LOC: MED 03:40
DX: F41.9 Anxiety disorder, unspecified (principal); J44.9 Chronic obstructive pulmonary disease, unspecified; E11.9 Type 2 diabetes mellitus without complications; Z20.822 Contact with and (suspected) exposure to COVID-19
CPT/HCPCS: 81001; 87086; 93005; 99284

== ENCOUNTER 2021-01-20 09:49 | Emergency (ER) | payer OTHER, MEDICAID ==
[~2021-01-20] VITALS: Ht 167.6 cm; Wt 60.8 kg
[2021-01-20 09:55] VITALS: BP 137/64
--- NOTE | 2021-01-20 10:04 | NUR ---
AMBULATED TO BED 4
--- NOTE | 2021-01-20 10:13 | NUR ---
85/F BIB DAUGHTER WITH C/O OF CHEST PRESSURE AND SOB, STATING FEELING ANXIOUS. STATES SHE WAS SEEN HERE FOR THURSDAY FOR SIMILAR SYMPTOMS. REPORTS TAKING ALBUTEROL INHALER AT HOME WITH NO RELIEF. PT STATES 7/10 CHEST PRESSURE AND 8/10 BILAT LEG CRAMPING AND NUMBNESS. MEDHX: COPD, ANXIETY ALLERGIES: DENIES
--- NOTE | 2021-01-20 10:34 | NUR ---
DR ROGEL AT BEDSIDE EXAMINING PT
--- NOTE | 2021-01-20 10:58 | NUR ---
X-RAY AT BEDSIDE.
[2021-01-20 11:49] LABS: BASOPHILS % (AUTO) 0.8 % (0.0-2.0); EOSINOPHILS # (AUTO) 0.2 K/uL (0-0.4); EOSINOPHILS % (AUTO) 3.3 % (0.0-4.0); HEMATOCRIT 36.3 % (36-48); LYMPHOCYTES % (AUTO) 16.7 % (20.5-51.1); MEAN CORPUSCULAR HEMOGLOBIN 31 pg (27-31); MEAN CORPUSCULAR HGB CONC 33 g/dL (33-37); MEAN CORPUSCULAR VOLUME 93.8 fL (80-94); MONOCYTES # (AUTO) 0.7 K/uL (0.8-1.0); MONOCYTES % (AUTO) 10.7 % (1.7-9.3); NEUTROPHILS # (AUTO) 4.2 K/uL (1.8-7.7); NEUTROPHILS % (AUTO) 68.5 % (42.2-75.2); PLATELET COUNT (AUTO) 161 K/uL (140-450); RED BLOOD CELL COUNT(AUTO) 3.87 MIL/uL (4.20-5.40); RED CELL DISTRIBUTION WIDTH 14.6 % (11.6-13.7); WHITE BLOOD COUNT (AUTO) 6.1 K/uL (4.8-10.8)
[2021-01-20 11:51] LABS: ANION GAP 8.4 (8-16); CARBON DIOXIDE 28.6 mmol/L (21-32); CHLORIDE 109 mmol/L (98-107); CREATININE 1.1 mg/dL (0.6-1.3); GLUCOSE 93 mg/dL (74-106); SODIUM SERUM 142 mmol/L (136-145); UREA NITROGEN, BLOOD 19 mg/dL (7-18)
--- NOTE | 2021-01-20 11:55 | NUR ---
Patient awake, appears to be resting comfortably in bed. Vital Signs within normal limits. Respirations even and unlabored. Chest rise is symmetrical. Will continue to monitor.
[2021-01-20 13:11] VITALS: BP 135/65
--- NOTE | 2021-01-20 13:11 | NUR ---
Patient discharged with v/s stable. Written and verbal after care instructions given and explained. Patient alert, oriented and verbalized understanding of instructions. Ambulatory with steady gait. All questions addressed prior to discharge. ID band removed. Patient advised to follow up with PMD. Opportunity to ask questions provided and answered.
== END 2021-01-20 13:11 | disposition home or self-care (01) ==
LOC: MED 09:49
DX: F41.9 Anxiety disorder, unspecified (principal); R07.9 Chest pain, unspecified; J44.9 Chronic obstructive pulmonary disease, unspecified; E11.9 Type 2 diabetes mellitus without complications; Z79.899 Other long term (current) drug therapy
CPT/HCPCS: 36415; 71045; 80048; 83880; 84484; 85025; 93005; 99285

== ENCOUNTER 2021-03-26 11:18 | Emergency (ER) | payer OTHER, MEDICAID ==
[~2021-03-26] VITALS: Ht 162.6 cm; Wt 58.6 kg
[2021-03-26 11:20] VITALS: BP 177/93
--- NOTE | 2021-03-26 11:32 | NUR ---
PATIENT AMBULATED TO BED 9.
--- NOTE | 2021-03-26 12:03 | NUR ---
ROSALINA Castellon is evaluating patient at bedside
--- NOTE | 2021-03-26 12:03 | NUR ---
85 y/o F BIB self from home c/o abdomnial pain x 1 year that worsened for past two nights. Patient A&Ox4, ambulatory, states LUQ abdominal pain 8/10, sharp/intermittent, radiating to low abdomen. Patient states foul tasting reflux into mouth. Denies nausea, vomiting, fever, chills, SOB, chest pain, dysuria. Pt states urinary frequency. Denies any medications prior to arrival. Pt placed into gown and design inserter. UA collected. Abdomen tender to palpation. Bed locked in lowest position, side rails x 1. PMH/Meds: COPD Sx: appendectomy, nasal polyp sx NKA
[2021-03-26] MEDS ORDERED: FAMOTIDINE 20 MG TAB PO ONE (12:15)
[2021-03-26] MEDS ORDERED: DICYCLOMINE HCL LIQUID 20 MG, ALUMINUM HYD/MAG/SIMETHICONE 30 ML, LIDOCAINE VISCOUS 2% ... PO ONE ×3 (12:15)
[2021-03-26] MEDS ORDERED: DICYCLOMINE HCL LIQUID 10 MG/5 ML UDC ONE (12:18)
[2021-03-26] MEDS ORDERED: ALUMINUM HYD/MAG/SIMETHICONE 30 ML UDC ONE (12:18)
--- NOTE | 2021-03-26 12:35 | NUR ---
UA AND BLOOD SAMPLE HANDED TO CPT SILVER AT ER BEDSIDE
[2021-03-26 12:44] LABS: BASOPHILS % (AUTO) 0.5 % (0.0-2.0); EOSINOPHILS # (AUTO) 0.2 K/uL (0-0.4); EOSINOPHILS % (AUTO) 2.6 % (0.0-4.0); HEMATOCRIT 38.1 % (36-48); HEMOGLOBIN 12.9 g/dL (12.0-16.0); LYMPHOCYTES % (AUTO) 10.8 % (20.5-51.1); MEAN CORPUSCULAR HEMOGLOBIN 30 pg (27-31); MEAN CORPUSCULAR HGB CONC 34 g/dL (33-37); MONOCYTES # (AUTO) 0.5 K/uL (0.8-1.0); MONOCYTES % (AUTO) 5.4 % (1.7-9.3); NEUTROPHILS # (AUTO) 7.4 K/uL (1.8-7.7); NEUTROPHILS % (AUTO) 80.7 % (42.2-75.2); PLATELET COUNT (AUTO) 149 K/uL (140-450); RED BLOOD CELL COUNT(AUTO) 4.23 MIL/uL (4.20-5.40); RED CELL DISTRIBUTION WIDTH 14.6 % (11.6-13.7); WHITE BLOOD COUNT (AUTO) 9.2 K/uL (4.8-10.8)
[2021-03-26 12:44] LABS: APPEARANCE,URINE CLEAR (CLEAR); BILIRUBIN,URINE NEGATIVE (NEGATIVE); BLOOD, URINE 1+ (NEGATIVE); COLOR,URINE YELLOW (YELLOW); LEUKOCYTE ESTERASE ,URINE NEGATIVE (NEGATIVE); NITRITE, URINE NEGATIVE (NEGATIVE); UGLUCOSE NEGATIVE (NEGATIVE)
[2021-03-26 12:58] LABS: WBC,URINE 0-5 /HPF (0-5)
[2021-03-26 12:59] LABS: URIC ACID CRYSTALS,URINE 0-10 /HPF (None Seen)
[2021-03-26 13:00] LABS: ALBUMIN 3.6 g/dL (3.4-5.0); ASPARTATE AMINOTRANSFERASE 22 U/L (15-37); CARBON DIOXIDE 26.8 mmol/L (21-32); CHLORIDE 108 mmol/L (98-107); GLUCOSE 101 mg/dL (74-106); LIPASE 125 U/L (73-393); POTASSIUM 3.8 mmol/L (3.5-5.1); SODIUM SERUM 141 mmol/L (136-145); TOTAL BILIRUBIN 0.5 mg/dL (0.0-1.0); UREA NITROGEN, BLOOD 20 mg/dL (7-18)
--- NOTE | 2021-03-26 13:30 | NUR ---
Pt states + relief to pain 10/01.
--- NOTE | 2021-03-26 13:35 | NUR ---
ROSALINA Castellon is reevaluating patient at bedside
--- NOTE | 2021-03-26 13:50 | NUR ---
Note edgarone in EDM - 03/26/21 at 1354 by FOSTER Patient discharged with v/s stable. Written and verbal after care instructions given and explained. Patient alert, oriented and verbalized understanding of instructions. Ambulatory with steady gait. All questions addressed prior to discharge. ID band removed. Patient advised to follow up with PMD. Rx of Flexeril, Ibuprofen given. Patient educated on indication of medication including possible reaction and side effects. Opportunity to ask questions provided and answered.
[2021-03-26] MEDS ORDERED: OMEP20EC11 PO (13:57)
[2021-03-26] MEDS ORDERED: ALUM355S59 PO (13:57)
--- NOTE | 2021-03-26 14:20 | NUR ---
Patient discharged with v/s stable. Written and verbal after care instructions given and explained. Patient alert, oriented and verbalized understanding of instructions. Ambulatory with steady gait. All questions addressed prior to discharge. ID band removed. Patient advised to follow up with PMD. Rx of MAG HYDRO/AI HYDROX/SIMETH AND OMEPRAZOLE given. Patient educated on indication of medication including possible reaction and side effects. Opportunity to ask questions provided and answered.
== END 2021-03-26 14:20 | disposition home or self-care (01) ==
LOC: MED 11:18
DX: K21.9 Gastro-esophageal reflux disease without esophagitis (principal); R03.0 Elevated blood-pressure reading, without diagnosis of hypertension; J44.9 Chronic obstructive pulmonary disease, unspecified; E11.9 Type 2 diabetes mellitus without complications; Z79.899 Other long term (current) drug therapy; Z90.49 Acquired absence of other specified parts of digestive tract
CPT/HCPCS: 36415; 80053; 81001; 83690; 85025; 99283